=== PATIENT | male | born 1950 | race Caucasian/White ===

== ENCOUNTER → 2016-06-23 | Outpatient (CLI) | payer BC | END | disposition home or self-care (01) | LOC: LABWHC1 10:14 | PROVIDERS: ATTEND Internal Medicine | DX: Z48.23 Encounter for aftercare following liver transplant (principal) | CPT/HCPCS: 36415; 87497 ==

== ENCOUNTER 2016-11-21 16:11 | Inpatient (IN) | payer BC ==
[2016-11-21 17:51] LABS: Glucose,Whole Blood 209 mg/dL (75-99)
[2016-11-21 18:59] LABS: Anisocytosis Slight; Basophils % (A) 0 %; CH 23.8; CHCM 31.5; Eosinophils % (A) 1 %; HCT 35.5 % (39.0-53.0); Hypochromasia Moderate; Luc # (Auto) 0.04; Luc % (Auto) 2; Lymphocytes # (A) 0.5 k/uL (1.0-4.8); Lymphocytes % (A) 16 %; MCH 23.5 pg (25.0-35.0); MCV 75.9 fL (80.0-100.0); Mean Platelet Volume 7.6; Microcytosis Slight; Monocytes # (A) 0.2 k/uL (0-1.0); Monocytes % (A) 8 %; Neutrophils # (A) 2.2 k/uL (1.3-7.7); Neutrophils % (A) 73 %; Poikilocytosis Slight; RBC 4.68 m/uL (4.30-5.90); RDW 16.6 % (11.5-15.5); WBC (Perox) 3.03
[2016-11-21] MEDS: SODIUM CHLORIDE 0.9% 1,000 ML IV SCH (19:07)
[2016-11-21] MEDS: HYDROcodone/APAP 10-325MG 1 EACH TAB PO PRN (19:08)
[2016-11-21 19:11] LABS: ALT 12 U/L (21-72); AST 17 U/L (17-59); Alkaline Phosphatase 91 U/L (38-126); Anion Gap 11 mmol/L; Blood Urea Nitrogen 24 mg/dL (9-20); Carbon Dioxide 25 mmol/L (22-30); Chloride 103 mmol/L (98-107); Glucose 200 mg/dL (74-99); Non-African American GFR(MDRD) 51 (>60 ml/min/1.73 sqM); Potassium 4.1 mmol/L (3.5-5.1); Sodium 139 mmol/L (137-145); Total Bilirubin 0.5 mg/dL (0.2-1.3); Total Protein 6.5 g/dL (6.3-8.2); Uric Acid 3.3 mg/dL (3.5-8.5)
[2016-11-21 19:56] LABS: Manual Review Performed
[2016-11-21 19:57] LABS: Ovalocytes Present
[2016-11-21 20:48] LABS: Glucose,Whole Blood 164 mg/dL (75-99)
[2016-11-21] MEDS: FERROUS SULFATE 325 MG TAB PO SCH (21:01)
[2016-11-21] MEDS: traZODone HCL 50 MG TAB PO SCH (21:01)
[2016-11-21] MEDS: URSODIOL 300 MG CAP PO SCH (21:01)
[2016-11-21] MEDS: TACROLIMUS 1 MG CAP PO SCH (21:01)
[2016-11-21] MEDS: MAGNESIUM OXIDE 400 MG TAB PO SCH (21:01)
[2016-11-21] MEDS: ZORTRESS 0.75 MG PO SCH (21:02)
[2016-11-21] MEDS: INSULIN LISPRO (humaLOG) 300 UNIT/3 ML VIAL SQ SCH (21:03)
[2016-11-21 21:18] LABS: Hemoglobin A1C 8.7 % (4.2-6.1)
[2016-11-22] MEDS: HYDROcodone/APAP 10-325MG 1 EACH TAB PO PRN ×4 (02:32→22:28)
[2016-11-22 07:05] LABS: Glucose,Whole Blood 170 mg/dL (75-99)
[2016-11-22] MEDS: INSULIN LISPRO (humaLOG) 300 UNIT/3 ML VIAL SQ SCH ×4 (07:57→23:04)
[2016-11-22] MEDS: ASPIRIN 81 MG CHEW PO SCH (07:57)
[2016-11-22] MEDS: URSODIOL 300 MG CAP PO SCH ×2 (07:57→20:16)
[2016-11-22] MEDS: MAGNESIUM OXIDE 400 MG TAB PO SCH ×2 (07:58→20:16)
[2016-11-22] MEDS: TACROLIMUS 1 MG CAP PO SCH ×2 (07:58→20:16)
[2016-11-22] MEDS: LORATADINE 10 MG TAB PO SCH (07:58)
[2016-11-22] MEDS: ALLOPURINOL 100 MG TAB PO SCH (07:59)
[2016-11-22] MEDS: B COMPLEX-VIT C-VIT E-ZINC 1 EACH TAB PO SCH (07:59)
[2016-11-22] MEDS: FERROUS SULFATE 325 MG TAB PO SCH ×2 (07:59→20:15)
[2016-11-22] MEDS: CHOLECALCIFEROL 1,000 UNIT TAB PO SCH (07:59)
[2016-11-22] MEDS: TAMSULOSIN 0.4 MG CAP.ER.24H PO SCH (07:59)
[2016-11-22] MEDS: ZORTRESS 0.75 MG PO SCH ×2 (08:00→20:18)
[2016-11-22] MEDS: HYDROmorphone 1 MG/ML 1 ML SYRINGE IVP PRN ×5 (09:55→23:15)
[2016-11-22 12:03] LABS: Glucose,Whole Blood 190 mg/dL (75-99)
[2016-11-22] MEDS ORDERED: LIDOCAINE 1% INJ 10MG/ML (20 ML MDV) SQ ONE (12:09)
--- NOTE | 2016-11-22 12:14 | XR ---
Right knee HISTORY: Pain and swelling 3 views of the right knee Bone mineralization, joint spaces and alignment are maintained. There is soft tissue swelling present especially in the prepatellar location. No fracture or dislocation. No sizable joint effusion. Suspe ct vascular calcifications are present. IMPRESSION: Soft tissue swelling, correlate to exclude cellulitis.
--- NOTE | 2016-11-22 12:20 | P.CNOR ---
History of Present Illness - HPI Consult date: 11/22/16 Requesting physician: Carlos Wright Consult reason: joint pain History of present illness: Patient is a pleasant 66-year-old male seen at bedside this morning. Orthopedics is consulted for right knee pain and swelling. He states he developed right knee pain on 11/19/2016. He denies any acute injury or trauma to the knee. He has developed some swelling in the knee and the pain has been difficult to control with oral pain medications. He has pain with range of motion of the knee and ambulating. He was admitted yesterday 2016 due to the knee pain. He has no known history of gout or sepsis. He does however state he status post liver transplant April 2016. He denies fever or chills. He also denies numbness or tingling. He has no radicular complaints. Review of systems is negative for fever, chills, chest pain, shortness breath, nausea, vomiting, dizziness, headaches, slurred speech or other. Review of Systems All systems: negative Constitutional: Denies chills, Denies fever Eyes: denies blurred vision, denies pain Ears, nose, mouth and throat: Denies headache, Denies sore throat Cardiovascular: Denies chest pain, Denies shortness of breath Respiratory: Denies cough Gastrointestinal: Denies abdominal pain, Denies diarrhea, Denies nausea, Denies vomiting Musculoskeletal: Denies myalgias Integumentary: Denies pruritus, Denies rash Neurological: Denies numbness, Denies weakness Psychiatric: Denies anxiety, Denies depression Endocrine: Denies fatigue, Denies weight change Past Medical History Past Medical History: Coronary Artery Disease (CAD), Diabetes Mellitus, Hyperlipidemia, Hypertension, Liver Disease, Renal Disease Additional Past Medical History / Comment(s): pt had liver transplant 05/24/16 at [facility], (PREVIOUS end stage liver disease, liver cirrhosis with recurrent ascites-was getting paracentesis once a week, episodic hyperkalemia, coagulopathy), chronic renal failure, diabetes mellitus type II, colon polyps, sinus infections, seasonal allergies, previous fungal infection on feet, PATIENT HAS JUST FINISHED HYPERBARIC CHAMBER FOR ANTIBIOTIC INHALATION FOR LIVER TRANSPLANT AT [facility]. History of Any Multi-Drug Resistant Organisms: None Reported Past Surgical History: Appendectomy, Tonsillectomy Additional Past Surgical History / Comment(s): colonoscopy with precancerous polyps removed, skin precancerous lesions removed, multiple PARACENTESIS, liver transplant 05/24/16 at [facility]. Past Anesthesia/Blood Transfusion Reactions: No Reported Reaction Past Psychological History: No Psychological Hx Reported Additional Psychological History / Comment(s): Pt resides with his spouse. He is independent. Smoking Status: Former smoker Past Alcohol Use History: None Reported Additional Past Alcohol Use History / Comment(s): Pt states he started smoking at age 15 yrs and quit around 1975. Past Drug Use History: None Reported Additional Drug Use History / Comment(s): old history of etoh abuse - Past Family History Mother Family Medical History: No Reported History Additional Family Medical History / Comment(s): Mother was healthy and at the age of 98yrs. Father Family Medical History: Cancer Additional Family Medical History / Comment(s): Skin cancer. Father had another type of cancer-unknown what kind. He at the age of 73yrs. Medications and Allergies Home Medications Medication Instructions Recorded Confirmed Type Cetirizine HCl 10 mg PO DAILY 01/26/16 11/21/16 History Cholecalciferol [Vitamin D3] 2,000 unit PO DAILY 01/26/16 11/21/16 History Tamsulosin [Flomax] 0.4 mg PO DAILY 03/28/16 11/21/16 History Aspirin EC [Ecotrin Low Dose] 81 mg PO DAILY 11/21/16 11/21/16 History Ferrous Sulfate [Feosol] 325 mg PO BID 11/21/16 11/21/16 History Magnesium Oxide [Mag-Ox] 400 mg PO BID 11/21/16 11/21/16 History Tacrolimus [Prograf] 2 mg PO HS 11/21/16 11/21/16 History Tacrolimus [Prograf] 3 mg PO QAM 11/21/16 11/21/16 History Ursodiol [Actigall] 600 mg PO BID 11/21/16 11/21/16 History Vitamin B Complex 1 cap PO DAILY 11/21/16 11/21/16 History Zortress 0.75mg 1.5 mg PO HS 11/21/16 11/21/16 History Zortress 0.75mg 2.25 mg PO QAM 11/21/16 11/21/16 History traZODone HCL 50 mg PO HS 11/21/16 11/21/16 History oxyCODONE HCL [Roxicodone] 5 mg PO Q6H PRN 11/22/16 11/22/16 History Allergies Allergy/AdvReac Type Severity Reaction Status Date / Time No Known Allergies Allergy Verified 05/16/16 13:41 Physical Examination Inspection of the right lower extremity shows a moderate effusion at the right knee. There doesn't appear to be any significant erythema. There is no bony abnormality. There is mild tenderness to palpation along the joint. He has pain with passive range of motion with flexion to 90. The knee appears to be ligamentously stable. There is normal patellar tracking. It is not overly hot to touch. Calf is soft and nontender. Motor is intact throughout the right lower extremity as well as sensation. 2+ dorsalis pedis pulse and less than 2 second cap refill is present. Results - Labs Labs: Abnormal Lab Results - Last 24 Hours (Table) 11/21/16 11/21/16 11/21/16 Range/Units 17:49 18:37 18:37 WBC 3.0 L (3.8-10.6) k/uL Hgb 11.0 L (13.0-17.5) gm/dL Hct 35.5 L (39.0-53.0) % MCV 75.9 L (80.0-100.0) fL MCH 23.5 L (25.0-35.0) pg RDW 16.6 H (11.5-15.5) % Plt Count 96 L (150-450) k/uL Lymphocytes # 0.5 L (1.0-4.8) k/uL BUN (9-20) mg/dL Creatinine (0.66-1.25) mg/dL Glucose (74-99) mg/dL POC Glucose (mg/dL) 209 H (75-99) mg/dL Hemoglobin A1c 8.7 H (4.2-6.1) % Uric Acid (3.5-8.5) mg/dL ALT (21-72) U/L 11/21/16 11/21/16 11/22/16 Range/Units 18:37 20:47 07:03 WBC (3.8-10.6) k/uL Hgb (13.0-17.5) gm/dL Hct (39.0-53.0) % MCV (80.0-100.0) fL MCH (25.0-35.0) pg RDW (11.5-15.5) % Plt Count (150-450) k/uL Lymphocytes # (1.0-4.8) k/uL BUN 24 H (9-20) mg/dL Creatinine 1.39 H (0.66-1.25) mg/dL Glucose 200 H (74-99) mg/dL POC Glucose (mg/dL) 164 H 170 H (75-99) mg/dL Hemoglobin A1c (4.2-6.1) % Uric Acid 3.3 L (3.5-8.5) mg/dL ALT 12 L (21-72) U/L 11/22/16 Range/Units 11:57 WBC (3.8-10.6) k/uL Hgb (13.0-17.5) gm/dL Hct (39.0-53.0) % MCV (80.0-100.0) fL MCH (25.0-35.0) pg RDW (11.5-15.5) % Plt Count (150-450) k/uL Lymphocytes # (1.0-4.8) k/uL BUN (9-20) mg/dL Creatinine (0.66-1.25) mg/dL Glucose (74-99) mg/dL POC Glucose (mg/dL) 190 H (75-99) mg/dL Hemoglobin A1c (4.2-6.1) % Uric Acid (3.5-8.5) mg/dL ALT (21-72) U/L H & H 11/21/16 Range/Units 18:37 Hgb 11.0 L (13.0-17.5) gm/dL Hct 35.5 L (39.0-53.0) % Result Diagrams: 11/21/16 18:37 11/21/16 18:37 - Diagnostic results Knee x-ray: image reviewed (No fractures or dislocations. Mild arthritic changes.) Assessment and Plan (1) Knee pain, acute Narrative/Plan: Patient is afebrile, has a low white blood cell count, and the joint is not hot and red, thus I believe septic arthritis is low on differential. He does have an effusion and pain with range of motion would suspect acute gouty attack versus acute intra-articular injury or acute exacerbation of arthritis higher on the differential diagnosis. We will aspirate the joint fluid and send for cell count, fluid analysis for crystals, Gram stain, cultures and sensitivity. Continue with pain management and supportive measures. We'll make further recommendations as appropriate. Status: Acute Time with Patient: Less than 30
[2016-11-22] MEDS: CEPHALEXIN 500 MG CAP PO SCH ×2 (13:28→16:39)
[2016-11-22 17:12] LABS: Glucose,Whole Blood 141 mg/dL (75-99)
[2016-11-22] MEDS: SODIUM CHLORIDE 0.9% 1,000 ML IV SCH (18:10)
--- NOTE | 2016-11-22 18:48 | P.HPIM ---
History of Present Illness H&P Date: 11/22/16 Chief Complaint: R knee pain and swelling Patient is a 66-year-old male patient of Dr. Ballard who presented to the office with a chief complaint of right knee pain and swelling and erythema, he was admitted directly to [facility] medical floor, orthopedic surgery consultation was requested for knee aspiration, differential diagnosis include acute gout exacerbation versus infection and septic joint. Patient denies any previous history of gout he denies any previous history of any systemic infection with sepsis. Past Medical History Past Medical History: Coronary Artery Disease (CAD), Diabetes Mellitus, Hyperlipidemia, Hypertension, Liver Disease, Renal Disease Additional Past Medical History / Comment(s): pt had liver transplant 05/24/16 at [facility], (PREVIOUS end stage liver disease, liver cirrhosis with recurrent ascites-was getting paracentesis once a week, episodic hyperkalemia, coagulopathy), chronic renal failure, diabetes mellitus type II, colon polyps, sinus infections, seasonal allergies, previous fungal infection on feet, PATIENT HAS JUST FINISHED HYPERBARIC CHAMBER FOR ANTIBIOTIC INHALATION FOR LIVER TRANSPLANT AT [facility]. History of Any Multi-Drug Resistant Organisms: None Reported Past Surgical History: Appendectomy, Tonsillectomy Additional Past Surgical History / Comment(s): colonoscopy with precancerous polyps removed, skin precancerous lesions removed, multiple PARACENTESIS, liver transplant 05/24/16 at [facility]. Past Anesthesia/Blood Transfusion Reactions: No Reported Reaction Past Psychological History: No Psychological Hx Reported Additional Psychological History / Comment(s): Pt resides with his spouse. He is independent. Smoking Status: Former smoker Past Alcohol Use History: None Reported Additional Past Alcohol Use History / Comment(s): Pt states he started smoking at age 15 yrs and quit around 1975. Past Drug Use History: None Reported Additional Drug Use History / Comment(s): old history of etoh abuse - Past Family History Mother Family Medical History: No Reported History Additional Family Medical History / Comment(s): Mother was healthy and at the age of 98yrs. Father Family Medical History: Cancer Additional Family Medical History / Comment(s): Skin cancer. Father had another type of cancer-unknown what kind. He at the age of 73yrs. Medications and Allergies Home Medications Medication Instructions Recorded Confirmed Type Cetirizine HCl 10 mg PO DAILY 01/26/16 11/21/16 History Cholecalciferol [Vitamin D3] 2,000 unit PO DAILY 01/26/16 11/21/16 History Tamsulosin [Flomax] 0.4 mg PO DAILY 03/28/16 11/21/16 History Aspirin EC [Ecotrin Low Dose] 81 mg PO DAILY 11/21/16 11/21/16 History Ferrous Sulfate [Feosol] 325 mg PO BID 11/21/16 11/21/16 History Magnesium Oxide [Mag-Ox] 400 mg PO BID 11/21/16 11/21/16 History Tacrolimus [Prograf] 2 mg PO HS 11/21/16 11/21/16 History Tacrolimus [Prograf] 3 mg PO QAM 11/21/16 11/21/16 History Ursodiol [Actigall] 600 mg PO BID 11/21/16 11/21/16 History Vitamin B Complex 1 cap PO DAILY 11/21/16 11/21/16 History Zortress 0.75mg 1.5 mg PO HS 11/21/16 11/21/16 History Zortress 0.75mg 2.25 mg PO QAM 11/21/16 11/21/16 History traZODone HCL 50 mg PO HS 11/21/16 11/21/16 History oxyCODONE HCL [Roxicodone] 5 mg PO Q6H PRN 11/22/16 11/22/16 History Allergies Allergy/AdvReac Type Severity Reaction Status Date / Time No Known Allergies Allergy Verified 05/16/16 13:41 Physical Exam Vitals: Vital Signs Temp Pulse Resp BP Pulse Ox 11/22/16 16:00 72 16 11/22/16 15:00 97.1 F L 72 16 157/93 98 11/22/16 08:00 68 16 11/22/16 07:00 97.5 F L 68 16 141/84 97 11/21/16 22:58 97.2 F L 88 18 127/73 95 Intake and Output 11/22/16 11/22/16 11/22/16 06:59 14:59 22:59 Intake Total 200 Output Total 1350 600 Balance -1150 -600 Intake: Oral 200 Output: Urine 1350 600 Other: Voiding Method Urinal Urinal # Voids 400 400 # Bowel Movements 0 0 Weight 85.502 kg Patient Weight 11/23/16 06:59 Weight 85.502 kg In general patient is alert and oriented 3 in no apparent distress HEENT head normocephalic and atraumatic Neck is supple no JVD no goiter no lymphadenopathy Chest exam reveals a few scattered crackles no wheezing Cardiac exam reveals regular heart sounds S1 and S2 no gallops no murmurs Abdomen is soft nontender no organomegaly with normal bowel sounds Extremity exam reveals the right knee with erythema and swelling and tenderness otherwise no edema no cyanosis or clubbing Results CBC & Chem 7: 11/21/16 18:37 11/21/16 18:37 Labs: Abnormal Lab Results - Last 24 Hours (Table) 11/21/16 11/21/16 11/21/16 Range/Units 18:37 18:37 18:37 WBC 3.0 L (3.8-10.6) k/uL Hgb 11.0 L (13.0-17.5) gm/dL Hct 35.5 L (39.0-53.0) % MCV 75.9 L (80.0-100.0) fL MCH 23.5 L (25.0-35.0) pg RDW 16.6 H (11.5-15.5) % Plt Count 96 L (150-450) k/uL Lymphocytes # 0.5 L (1.0-4.8) k/uL BUN 24 H (9-20) mg/dL Creatinine 1.39 H (0.66-1.25) mg/dL Glucose 200 H (74-99) mg/dL POC Glucose (mg/dL) (75-99) mg/dL Hemoglobin A1c 8.7 H (4.2-6.1) % Uric Acid 3.3 L (3.5-8.5) mg/dL ALT 12 L (21-72) U/L 11/21/16 11/22/16 11/22/16 Range/Units 20:47 07:03 11:57 WBC (3.8-10.6) k/uL Hgb (13.0-17.5) gm/dL Hct (39.0-53.0) % MCV (80.0-100.0) fL MCH (25.0-35.0) pg RDW (11.5-15.5) % Plt Count (150-450) k/uL Lymphocytes # (1.0-4.8) k/uL BUN (9-20) mg/dL Creatinine (0.66-1.25) mg/dL Glucose (74-99) mg/dL POC Glucose (mg/dL) 164 H 170 H 190 H (75-99) mg/dL Hemoglobin A1c (4.2-6.1) % Uric Acid (3.5-8.5) mg/dL ALT (21-72) U/L 11/22/16 Range/Units 17:05 WBC (3.8-10.6) k/uL Hgb (13.0-17.5) gm/dL Hct (39.0-53.0) % MCV (80.0-100.0) fL MCH (25.0-35.0) pg RDW (11.5-15.5) % Plt Count (150-450) k/uL Lymphocytes # (1.0-4.8) k/uL BUN (9-20) mg/dL Creatinine (0.66-1.25) mg/dL Glucose (74-99) mg/dL POC Glucose (mg/dL) 141 H (75-99) mg/dL Hemoglobin A1c (4.2-6.1) % Uric Acid (3.5-8.5) mg/dL ALT (21-72) U/L Thrombosis Risk Factor Assmnt - Choose All That Apply Any of the Below Risk Factors Present?: Yes Other Risk Factors: Yes Each Risk Factor Represents 2 Points: Age 61-74 years Thrombosis Risk Factor Assessment Total Risk Factor Score: 2 Thrombosis Risk Factor Assessment Level: Low Risk Assessment and Plan Plan: #1 right knee inflammation with swelling erythema and tenderness Orthopedic surgery consultation was requested for the aspiration Differential diagnosis includes septic joint versus acute gout attack Awaiting fluid the results Will start patient on IV Rocephin 1 g every 24 hours Awaiting further results
[2016-11-22] MEDS: traZODone HCL 50 MG TAB PO SCH (20:16)
[2016-11-22 20:46] LABS: Glucose,Whole Blood 131 mg/dL (75-99)
[2016-11-23] MEDS: HYDROmorphone 1 MG/ML 1 ML SYRINGE IVP PRN ×4 (04:15→14:50)
[2016-11-23] MEDS: HYDROcodone/APAP 10-325MG 1 EACH TAB PO PRN ×2 (06:12→11:26)
[2016-11-23 07:40] LABS: Glucose,Whole Blood 144 mg/dL (75-99)
[2016-11-23 08:06] LABS: Anisocytosis Slight; Basophils % (A) 1 %; CH 23.5; CHCM 32.1; Eosinophils # (A) 0.1 k/uL (0-0.7); Eosinophils % (A) 3 %; HCT 35.5 % (39.0-53.0); HDW 3.41; HGB 11.5 gm/dL (13.0-17.5); Hypochromasia Slight; Luc # (Auto) 0.06; Luc % (Auto) 2; Lymphocytes # (A) 0.6 k/uL (1.0-4.8); Lymphocytes % (A) 22 %; MCH 23.8 pg (25.0-35.0); MCHC 32.4 g/dL (31.0-37.0); MCV 73.5 fL (80.0-100.0); Mean Platelet Volume 7.1; Microcytosis Moderate; Monocytes # (A) 0.3 k/uL (0-1.0); Monocytes % (A) 10 %; Neutrophils # (A) 1.7 k/uL (1.3-7.7); Neutrophils % (A) 62 %; Poikilocytosis Slight; RBC 4.83 m/uL (4.30-5.90); RDW 16.3 % (11.5-15.5); WBC 2.7 k/uL (3.8-10.6); WBC (Perox) 2.72
[2016-11-23 08:07] LABS: ALT 27 U/L (21-72); AST 19 U/L (17-59); Alkaline Phosphatase 95 U/L (38-126); Anion Gap 11 mmol/L; Blood Urea Nitrogen 25 mg/dL (9-20); Carbon Dioxide 26 mmol/L (22-30); Chloride 103 mmol/L (98-107); Glucose 142 mg/dL (74-99); Non-African American GFR(MDRD) 52 (>60 ml/min/1.73 sqM); Potassium 4.3 mmol/L (3.5-5.1); Sodium 140 mmol/L (137-145); Total Bilirubin 0.6 mg/dL (0.2-1.3); Total Protein 6.2 g/dL (6.3-8.2)
[2016-11-23] MEDS: ZORTRESS 0.75 MG PO SCH ×2 (08:10→21:30)
[2016-11-23] MEDS: MAGNESIUM OXIDE 400 MG TAB PO SCH ×2 (08:11→21:28)
[2016-11-23] MEDS: LORATADINE 10 MG TAB PO SCH (08:11)
[2016-11-23] MEDS: CHOLECALCIFEROL 1,000 UNIT TAB PO SCH (08:11)
[2016-11-23] MEDS: TACROLIMUS 1 MG CAP PO SCH ×2 (08:11→21:28)
[2016-11-23] MEDS: URSODIOL 300 MG CAP PO SCH ×2 (08:11→21:28)
[2016-11-23] MEDS: INSULIN LISPRO (humaLOG) 300 UNIT/3 ML VIAL SQ SCH ×4 (08:11→21:29)
[2016-11-23] MEDS: TAMSULOSIN 0.4 MG CAP.ER.24H PO SCH (08:11)
[2016-11-23] MEDS: B COMPLEX-VIT C-VIT E-ZINC 1 EACH TAB PO SCH (08:12)
[2016-11-23] MEDS: ALLOPURINOL 100 MG TAB PO SCH (08:12)
[2016-11-23] MEDS: FERROUS SULFATE 325 MG TAB PO SCH ×2 (08:12→21:29)
[2016-11-23] MEDS: ASPIRIN 81 MG CHEW PO SCH (08:12)
[2016-11-23 09:15] LABS: C Reactive Protein 52.1 mg/L (<10.0)
[2016-11-23 09:26] LABS: Erythrocyte Sedimentation Rate 28 mm/hr (0-15)
--- NOTE | 2016-11-23 10:41 | P.PN ---
Subjective Principal diagnosis: Prepatellar bursitis Patient is a 66-year-old male seen at bedside again this morning. We are following for his right knee pain. X-rays were negative which showed some soft tissue swelling. No significant joint aspirate was obtained. His findings have been more consistent with a prepatellar bursitis rather than a joint problem. Ice, compression, elevation and antibiotics have been started. He has no fever or chills. He has no new complaints today. He denies numbness, tingling, calf pain or other. Objective - Vital Signs Vital signs: Vital Signs Temp 97.1 F L 11/23/16 07:37 Pulse 73 11/23/16 08:00 Resp 18 11/23/16 08:00 BP 144/97 11/23/16 07:37 Pulse Ox 96 11/23/16 07:37 Intake & Output 11/22/16 11/23/16 11/23/16 18:59 06:59 18:59 Intake Total 200 Output Total 1950 1800 Balance -1750 -1800 Weight 85.502 kg Intake: Oral 200 Output: Urine 1950 1800 Other: Voiding Method Urinal Urinal # Voids 400 0 # Bowel Movements 0 0 - Exam Inspection of the right knee show some soft tissue swelling. There is no severe erythema. The joint is not overly hot. There is tenderness sup at the prepatellar bursa and skin superficial to patella. There is no joint line pain. The knee joint is ligamentously. The calf is soft and nontender. Neurovascular status is intact. - Constitutional General appearance: Present: no acute distress - Psychiatric Psychiatric: Present: A&O x's 3, appropriate affect, intact judgment & insight - Labs CBC & Chem 7: 11/23/16 07:07 11/23/16 07:07 Labs: Abnormal Lab Results - Last 24 Hours (Table) 11/22/16 11/22/16 11/22/16 Range/Units 11:57 17:05 20:45 WBC (3.8-10.6) k/uL Hgb (13.0-17.5) gm/dL Hct (39.0-53.0) % MCV (80.0-100.0) fL MCH (25.0-35.0) pg RDW (11.5-15.5) % Plt Count (150-450) k/uL Lymphocytes # (1.0-4.8) k/uL ESR (0-15) mm/hr BUN (9-20) mg/dL Creatinine (0.66-1.25) mg/dL Glucose (74-99) mg/dL POC Glucose (mg/dL) 190 H 141 H 131 H (75-99) mg/dL C-Reactive Protein (<10.0) mg/L Total Protein (6.3-8.2) g/dL 11/23/16 11/23/16 11/23/16 Range/Units 07:07 07:07 07:30 WBC 2.7 L (3.8-10.6) k/uL Hgb 11.5 L (13.0-17.5) gm/dL Hct 35.5 L (39.0-53.0) % MCV 73.5 L (80.0-100.0) fL MCH 23.8 L (25.0-35.0) pg RDW 16.3 H (11.5-15.5) % Plt Count 102 L (150-450) k/uL Lymphocytes # 0.6 L (1.0-4.8) k/uL ESR 28 H (0-15) mm/hr BUN 25 H (9-20) mg/dL Creatinine 1.37 H (0.66-1.25) mg/dL Glucose 142 H (74-99) mg/dL POC Glucose (mg/dL) 144 H (75-99) mg/dL C-Reactive Protein 52.1 H (<10.0) mg/L Total Protein 6.2 L (6.3-8.2) g/dL Assessment and Plan (1) Knee pain, acute Narrative/Plan: Patient is afebrile, has a low white blood cell count, and the joint is not hot and red, thus I believe septic arthritis is low on differential. He will continue with compression, elevation and icing. He is on IV ceftriaxone. We' ll request his primary care team's recommendation for an anti-inflammatory. We will continue to follow labs. Continue with pain management and supportive measures. We will continue to follow and make further recommendations as appropriate. Status: Acute Time with Patient: Less than 30
[2016-11-23] MEDS ORDERED: SODIUM CHLORIDE 0.9% 1,000 ML IV STA (10:54)
--- NOTE | 2016-11-23 11:06 | P.PN ---
Subjective Principal diagnosis: Patient is a 66-year-old male patient of Dr. Ballard who presented to the office with a chief complaint of right knee pain and swelling and erythema, he was admitted directly to [facility] medical floor, orthopedic surgery consultation was requested for knee aspiration, differential diagnosis include acute gout exacerbation versus infection and septic joint. Patient denies any previous history of gout he denies any previous history of any systemic infection with sepsis. Objective - Vital Signs Vital signs: Vital Signs Temp 97.1 F L 11/23/16 07:37 Pulse 73 11/23/16 08:00 Resp 18 11/23/16 08:00 BP 144/97 11/23/16 07:37 Pulse Ox 96 11/23/16 07:37 Intake & Output 11/22/16 11/23/16 11/23/16 18:59 06:59 18:59 Intake Total 200 Output Total 1950 1800 Balance -1750 -1800 Weight 85.502 kg Intake: Oral 200 Output: Urine 1950 1800 Other: Voiding Method Urinal Urinal # Voids 400 0 # Bowel Movements 0 0 - Exam In general patient is alert and oriented 3 in no apparent distress HEENT head normocephalic and atraumatic Neck is supple no JVD no goiter no lymphadenopathy Chest exam reveals a few scattered crackles no wheezing Cardiac exam reveals regular heart sounds S1 and S2 no gallops no murmurs Abdomen is soft nontender no organomegaly with normal bowel sounds Extremity exam reveals the right knee with erythema and swelling and tenderness , slightly less swelling and erythema than yesterday otherwise no edema no cyanosis or clubbing - Labs CBC & Chem 7: 11/23/16 07:07 11/23/16 07:07 Labs: Abnormal Lab Results - Last 24 Hours (Table) 11/22/16 11/22/16 11/22/16 Range/Units 11:57 17:05 20:45 WBC (3.8-10.6) k/uL Hgb (13.0-17.5) gm/dL Hct (39.0-53.0) % MCV (80.0-100.0) fL MCH (25.0-35.0) pg RDW (11.5-15.5) % Plt Count (150-450) k/uL Lymphocytes # (1.0-4.8) k/uL ESR (0-15) mm/hr BUN (9-20) mg/dL Creatinine (0.66-1.25) mg/dL Glucose (74-99) mg/dL POC Glucose (mg/dL) 190 H 141 H 131 H (75-99) mg/dL C-Reactive Protein (<10.0) mg/L Total Protein (6.3-8.2) g/dL 11/23/16 11/23/16 11/23/16 Range/Units 07:07 07:07 07:30 WBC 2.7 L (3.8-10.6) k/uL Hgb 11.5 L (13.0-17.5) gm/dL Hct 35.5 L (39.0-53.0) % MCV 73.5 L (80.0-100.0) fL MCH 23.8 L (25.0-35.0) pg RDW 16.3 H (11.5-15.5) % Plt Count 102 L (150-450) k/uL Lymphocytes # 0.6 L (1.0-4.8) k/uL ESR 28 H (0-15) mm/hr BUN 25 H (9-20) mg/dL Creatinine 1.37 H (0.66-1.25) mg/dL Glucose 142 H (74-99) mg/dL POC Glucose (mg/dL) 144 H (75-99) mg/dL C-Reactive Protein 52.1 H (<10.0) mg/L Total Protein 6.2 L (6.3-8.2) g/dL Assessment and Plan Plan: #1 right knee inflammation with swelling erythema and tenderness Orthopedic surgery consultation was requested for knee aspiration, however they were unable to obtain any fluid Differential diagnosis includes septic joint versus acute gout attack At this time patient was started on IV steroid Solu-Medrol 40 mg IV every 8 Will increase normal saline to 50 mL an hour due to elevated BUN and creatinine and monitor kidney function closely Continue patient on IV Rocephin 1 g every 24 hours Will monitor clinically
[2016-11-23 11:35] LABS: Glucose,Whole Blood 163 mg/dL (75-99)
[2016-11-23] MEDS: methylPREDNISolone SOD SUCCI 40 MG/ML 1 ML VIAL IV SCH ×2 (11:49→15:51)
[2016-11-23 17:05] LABS: Glucose,Whole Blood 266 mg/dL (75-99)
[2016-11-23] MEDS: SODIUM CHLORIDE 0.9% 1,000 ML IV SCH (17:51)
[2016-11-23 20:37] LABS: Glucose,Whole Blood 329 mg/dL (75-99)
[2016-11-23] MEDS: traZODone HCL 50 MG TAB PO SCH (21:28)
[2016-11-23 23:14] VITALS: RESP 16
[2016-11-24] MEDS: methylPREDNISolone SOD SUCCI 40 MG/ML 1 ML VIAL IV SCH ×2 (00:32→07:47)
[2016-11-24 07:07] LABS: Glucose,Whole Blood 340 mg/dL (75-99)
[2016-11-24] MEDS: INSULIN LISPRO (humaLOG) 300 UNIT/3 ML VIAL SQ SCH ×2 (07:47→13:10)
[2016-11-24] MEDS: MAGNESIUM OXIDE 400 MG TAB PO SCH ×2 (07:48→07:50)
[2016-11-24] MEDS: TACROLIMUS 1 MG CAP PO SCH (07:48)
[2016-11-24] MEDS: LORATADINE 10 MG TAB PO SCH (07:48)
[2016-11-24] MEDS: FERROUS SULFATE 325 MG TAB PO SCH (07:48)
[2016-11-24] MEDS: CHOLECALCIFEROL 1,000 UNIT TAB PO SCH (07:49)
[2016-11-24] MEDS: ASPIRIN 81 MG CHEW PO SCH (07:49)
[2016-11-24] MEDS: B COMPLEX-VIT C-VIT E-ZINC 1 EACH TAB PO SCH (07:49)
[2016-11-24] MEDS: URSODIOL 300 MG CAP PO SCH (07:50)
[2016-11-24] MEDS: ZORTRESS 0.75 MG PO SCH (07:50)
[2016-11-24] MEDS: TAMSULOSIN 0.4 MG CAP.ER.24H PO SCH (07:51)
[2016-11-24 08:08] VITALS: BP 142/87; PULSE 77; TEMP 97.5
[2016-11-24] MEDS ORDERED: ALLOPURINOL 100 MG TAB PO SCH (09:00)
--- NOTE | 2016-11-24 11:56 | P.PN ---
Subjective Principal diagnosis: Prepatellar bursitis/patellar tendonitis Patient is a 66-year-old male seen at bedside again this morning. We are following for his right knee pain. X-rays were negative which showed some soft tissue swelling. No significant joint aspirate was obtained. His findings have been more consistent with a prepatellar bursitis/patellar tendonitis rather than a joint problem. Ice, compression, elevation, corticosteroids and antibiotics have been utilized. He is much improved this morning. He has no fever or chills. He has no new complaints today. He denies numbness, tingling, calf pain or other. Objective - Vital Signs Vital signs: Vital Signs Temp 97.5 F L 11/24/16 07:00 Pulse 77 11/24/16 07:00 Resp 16 11/24/16 08:00 BP 142/87 11/24/16 07:00 Pulse Ox 92 L 11/24/16 07:00 Intake & Output 11/23/16 11/24/16 11/24/16 18:59 06:59 18:59 Output Total 1500 700 Balance -1500 -700 Weight 85.502 kg 85.502 kg Output: Urine 1500 700 Other: Voiding Method Urinal Urinal # Voids 0 2 2 # Bowel Movements 0 0 - Exam Inspection of the right knee show no significant swelling. There is no erythema. The joint is not overly hot. The tenderness at the superficial patella, bursa and patellar tendon are significantly improved. There is minimal pain with active and passive range of motion of the knee. There is no joint line pain. The knee joint is ligamentously stable. The calf is soft and nontender. Neurovascular status is intact. - Constitutional General appearance: Present: no acute distress - Psychiatric Psychiatric: Present: A&O x's 3, appropriate affect, intact judgment & insight - Labs CBC & Chem 7: 11/23/16 07:07 11/23/16 07:07 Labs: Abnormal Lab Results - Last 24 Hours (Table) 11/23/16 11/23/16 11/24/16 Range/Units 17:02 20:35 07:03 POC Glucose (mg/dL) 266 H 329 H 340 H (75-99) mg/dL Assessment and Plan (1) Knee pain, acute Narrative/Plan: Patient is significantly improved this morning. There is minimal tenderness at the patellar tendon and bursa. There is no joint effusion or erythema. He is afebrile. He may continue with anti-inflammatories per primary care team. Continue icing and compression when necessary. Also recommended modified activities with no excessive squatting, kneeling or stairs. He may be discharged from an orthopedic standpoint and we will sign off for now. He may follow up with us in office if he desires. Status: Acute Time with Patient: Less than 30
[2016-11-24 12:09] LABS: Glucose,Whole Blood 386 mg/dL (75-99)
[2016-11-24] MEDS ORDERED: INSULIN LISPRO (humaLOG) 300 UNIT/3 ML VIAL SQ ONE (12:15)
--- NOTE | 2016-11-24 13:58 | P.DS ---
Providers Date of admission: 11/21/16 16:27 Expected date of discharge: 11/24/16 Attending physician: Gaetano Ballard Consults: 11/21/16 18:18 Consult Physician Routine Consulting Provider: Carlos Wright Consult Reason/Comments: ASPIRATION OF RIGHT KNEE FLUID, SEPTIC ARTHRITIS VS GOUT Do you want consulting provider notified?: Yes Primary care physician: Stated None Hospital Course: Discharge diagnosis 1. Acute right knee pain with Prepatellar bursitis. Septic joint and gout ruled out. patient will be discharged with Medrol Dosepak 2. Diabetes mellitus type 2: diet controlled. Hyperglycemia secondary to IV steroids covered with sliding scale 3. Hyperlipidemia 4. Essential hypertension 5. Chronic renal failure stage III 6. End-stage liver disease with liver cirrhosis status post liver transplant at [facility] course Patient is a 66-year-old male patient of Dr. Ballard who presented to the office with a chief complaint of right knee pain and swelling and erythema, he was admitted directly to [facility] medical floor, orthopedic surgery consultation was requested for knee aspiration, differential diagnosis include acute gout exacerbation versus infection and septic joint. Patient denies any previous history of gout he denies any previous history of any systemic infection with sepsis. Patient was started on IV steroids and antibiotics. There was no fluid to aspirate. Uric acid level was 3.3 which is low. Patient was evaluated by orthopedics and they felt that likely this was a prepatellar bursitis. And therefore we will treat with a Medrol Dosepak. Patient does have oxycodone at home and he'll continue that. He did have elevated blood sugars due to the IV steroids. Patient's symptoms have improved. He is medically stable for discharge. He will follow-up with orthopedics outpatient Patient Condition at Discharge: Stable Plan - Discharge Summary New Discharge Prescriptions: New methylPREDNISolone Dose Pack [Medrol Dose Pack] 4 mg PO DIRECTED #21 package Continue Cholecalciferol [Vitamin D3] 2,000 unit PO DAILY Cetirizine HCl 10 mg PO DAILY Tamsulosin [Flomax] 0.4 mg PO DAILY Ursodiol [Actigall] 600 mg PO BID Tacrolimus [Prograf] 3 mg PO QAM Tacrolimus [Prograf] 2 mg PO HS Magnesium Oxide [Mag-Ox] 400 mg PO BID traZODone HCL 50 mg PO HS Zortress 0.75mg 2.25 mg PO QAM Ferrous Sulfate [Iron (65 MG Elemental)] 325 mg PO BID Zortress 0.75mg 1.5 mg PO HS Vitamin B Complex 1 cap PO DAILY Aspirin EC [Ecotrin Low Dose] 81 mg PO DAILY oxyCODONE HCL [Roxicodone] 5 mg PO Q6H PRN PRN Reason: Pain Discharge Medication List Cetirizine HCl 10 mg PO DAILY 01/26/16 [History] Cholecalciferol [Vitamin D3] 2,000 unit PO DAILY 01/26/16 [History] Tamsulosin [Flomax] 0.4 mg PO DAILY 03/28/16 [History] Aspirin EC [Ecotrin Low Dose] 81 mg PO DAILY 11/21/16 [History] Ferrous Sulfate [Iron (65 MG Elemental)] 325 mg PO BID 11/21/16 [History] Magnesium Oxide [Mag-Ox] 400 mg PO BID 11/21/16 [History] Tacrolimus [Prograf] 2 mg PO HS 11/21/16 [History] Tacrolimus [Prograf] 3 mg PO QAM 11/21/16 [History] Ursodiol [Actigall] 600 mg PO BID 11/21/16 [History] Vitamin B Complex 1 cap PO DAILY 11/21/16 [History] Zortress 0.75mg 1.5 mg PO HS 11/21/16 [History] Zortress 0.75mg 2.25 mg PO QAM 11/21/16 [History] traZODone HCL 50 mg PO HS 11/21/16 [History] oxyCODONE HCL [Roxicodone] 5 mg PO Q6H PRN 11/22/16 [History] methylPREDNISolone Dose Pack [Medrol Dose Pack] 4 mg PO DIRECTED #21 package 11/24/16 [Rx] Follow up Appointment(s)/Referral(s): Gaetano Ballard MD [STAFF PHYSICIAN] - 1 Week Carlos Wright MD [STAFF PHYSICIAN] - 1 Week Patient Instructions/Handouts: Septic Arthritis (DC) Activity/Diet/Wound Care/Special Instructions: Cardiac, diabetic diet. activity: as tolerated Discharge Disposition: HOME SELF-CARE
--- NOTE | 2016-11-26 11:07 | CONS ---
DATE OF CONSULTATION: 11/23/2016 Amandeep is a very pleasant 66-year-old male. We are consulted by Medicine Service for right knee pain and swelling. Of note, he has had a history of liver transplant done in April of 2016 at [facility]. He has recovered quite nicely from that. He developed knee pain approximately 2 to 3 days ago. On history to me, he spent the previous day working in the yard, cutting the grass. He was quite active that day. He woke up with knee pain the next day. Most of his pain is in the front part of his knee. He presented to the hospital on 11/21/2016 due to the knee pain. He has no known history of gout or sepsis. He denied any fever or chills. He was admitted for his knee pain. MEDICAL HISTORY: 1. Coronary artery disease. 2. Diabetes mellitus. 3. Hyperlipidemia. 4. Hypertension. 5. Liver disease. The patient had a liver transplant on 05/24/2016 at [facility]. 6. Renal disease. 7. Chronic renal failure. 8. Sinus infections. 9. Seasonal allergies. SURGICAL HISTORY: 1. Appendectomy. 2. Tonsillectomy. 3. Liver transplant. SMOKING STATUS: Former smoker. PHYSICAL EXAM: Amandeep is afebrile. Vital signs are stable. White count done today was 2.7, hemoglobin 11.5, platelets 102. EXAMINATION OF THE RIGHT KNEE: There is no erythema or fluctuance. He has no effusion in the knee. He is very tender in the pre-patellar area. Specifically, he is very tender over the patellar tendon. There is very minimal to no swelling in this area, either. There is no erythema or fluctuance. He has been improving with rest. He has full extension of the knee. Flexion is to 120 degrees, but he has pain with hyperflexion in the anterior aspects of the knee. The knee is otherwise ligamentously stable. Distally he has intact flexion and extension of the foot and ankle, intact inversion and eversion of the ankle. He has intact flexion and extension of all of his toes. He has grossly intact sensation in the lateral medial plantar and first dorsal web space sensation. He has a palpable posterior tibial pulse. X-rays of the knee are negative for fracture. IMPRESSION: Right knee mild pre-patellar bursitis versus patellar tendinitis. RECOMMENDATIONS: Amandeep is improving with rest. I do not see any evidence of an intra-articular infection. There is no fluid collection which could be aspirated from the pre-patellar area, either. Per his history, he developed this knee pain after doing quite a bit of lawn work the day before. He has likely developed an inflammatory condition in the anterior aspect of the knee. Rest and ice will be warranted at this point in time. Certainly if signs of infection were to arise, attempt at an aspiration would be reasonable. At this point in time I do not see any need to continue trying to obtain an aspirate from the knee. Continue to monitor Amandeep while he is in the hospital. I will see him in the office within a week after discharge to follow up on his symptoms. All of his questions were answered to his satisfaction. The plan of care was reviewed with him to his satisfaction. NIXON
== END 2016-11-24 14:56 | disposition home or self-care (01) | DRG 558 ==
LOC: OBSVTOIN 16:27 → 4MS4W 16:27
PROVIDERS: ADMIT Internal Medicine; ATTEND Internal Medicine
PROC: 0S9C3ZZ Drainage of Right Knee Joint, Percutaneous Approach (ICD-10-PCS; principal; 2016-11-22)
DX: M70.41 Prepatellar bursitis, right knee (principal); E11.22 Type 2 diabetes mellitus with diabetic chronic kidney disease; Z94.4 Liver transplant status; N18.3 Chronic kidney disease, stage 3 (moderate); E11.65 Type 2 diabetes mellitus with hyperglycemia; E78.5 Hyperlipidemia, unspecified; T38.0X5A Adverse effect of glucocorticoids and synthetic analogues, initial encounter; M17.11 Unilateral primary osteoarthritis, right knee; I25.10 Atherosclerotic heart disease of native coronary artery without angina pectoris; I12.9 Hypertensive chronic kidney disease with stage 1 through stage 4 chronic kidney disease, or unspecified chronic kidney disease; J30.2 Other seasonal allergic rhinitis; Z87.891 Personal history of nicotine dependence; Z80.8 Family history of malignant neoplasm of other organs or systems; Z86.010 Personal history of colon polyps; Z90.49 Acquired absence of other specified parts of digestive tract; Z80.9 Family history of malignant neoplasm, unspecified; Z86.19 Personal history of other infectious and parasitic diseases; Z79.82 Long term (current) use of aspirin; Z79.891 Long term (current) use of opiate analgesic; Z79.899 Other long term (current) drug therapy; Z92.25 Personal history of immunosuppression therapy
CPT/HCPCS: 80053; 83036; 84550; 85025; 85652; 86140

== ENCOUNTER → 2017-01-26 | Outpatient (CLI) | payer BC | END | disposition home or self-care (01) | LOC: LABWHC1 06:34 | PROVIDERS: ATTEND Internal Medicine | DX: Z87.39 Personal history of other diseases of the musculoskeletal system and connective tissue (principal) | CPT/HCPCS: 36415; 84550 ==

== ENCOUNTER → 2017-02-08 | Outpatient (CLI) | payer BC | END | disposition home or self-care (01) | LOC: LABWHC1 06:56 | PROVIDERS: ATTEND Internal Medicine | DX: M10.9 Gout, unspecified (principal) | CPT/HCPCS: 36415; 84550 ==

== ENCOUNTER → 2017-06-14 | Outpatient (CLI) | payer BC | END | disposition home or self-care (01) | LOC: LABWHC1 06:39 | PROVIDERS: ATTEND Internal Medicine | DX: M1A.00X0 Idiopathic chronic gout, unspecified site, without tophus (tophi) (principal) | CPT/HCPCS: 36415; 84550 ==

== ENCOUNTER 2017-07-31 07:32 | Day surgery (SDC) | payer BC ==
[2017-07-28 09:08] VITALS: BMI 31.5
[~2017-07-31 07:32] MED LIST: DEXAMETHASONE SOD PHOSPHATE 10 MG/ML 1 ML VIAL IV ONE; HEPARIN SODIUM,PORCINE 5,000 UNIT/ML 1 ML VIAL SQ ONE; LACTATED RINGERS 1,000 ML IV SCH; LIDOCAINE 1% 20 ML VIAL (10MG/ML) FOR IV START INTRADERMA PRN; MORPHINE SULFATE 2 MG/ML SYRINGE IV PRN; ONDANSETRON 4 MG/2 ML VIAL IVP ONE; Pre Op ABX Message 1 EACH MISC MISCELLANE ONE; SCOPOLAMINE 1.5MG/72HR PATCH TRANSDERM ONE
[2017-07-31 08:15] VITALS: TEMP 98.1
--- NOTE | 2017-07-31 08:33 | P.GSHP ---
History of Present Illness H&P Date: 07/31/17 Chief Complaint: Melanoma left chest wall This is a 67-year-old male who's undergone recent biopsy of a chest wall skin lesion. Patient's found to have a melanoma. Patient presents today for wide local excision of melanoma. Past Medical History Past Medical History: Cancer, Diabetes Mellitus, Hyperlipidemia, Hypertension, Liver Disease, Renal Disease Additional Past Medical History / Comment(s): Liver Transplant 05/24/16 at [facility], (PREVIOUS end stage liver disease, liver cirrhosis with recurrent ascites& paracentesis weekly, episodic hyperkalemia, coagulopathy), chronic renal failure, diabetes mellitus type II, colon polyps, sinus infections, seasonal allergies, Hx of HYPERBARIC CHAMBER FOR ANTIBIOTIC INHALATION FOR LIVER TRANSPLANT AT [facility]. , melanoma left chest- pt states small scab from biopsy. History of Any Multi-Drug Resistant Organisms: None Reported Past Surgical History: Appendectomy, Tonsillectomy Additional Past Surgical History / Comment(s): colonoscopy with precancerous polyps removed, skin precancerous lesions removed, multiple PARACENTESIS, liver transplant 05/24/16 at [facility]. Past Anesthesia/Blood Transfusion Reactions: No Reported Reaction Past Psychological History: No Psychological Hx Reported Additional Psychological History / Comment(s): . Smoking Status: Former smoker Past Alcohol Use History: None Reported Additional Past Alcohol Use History / Comment(s): Pt states he started smoking at age 15 yrs and quit around 1975. Past hx of alcohol use. Past Drug Use History: None Reported - Past Family History Mother Family Medical History: No Reported History Additional Family Medical History / Comment(s): Mother was healthy and at the age of 98yrs. Father Family Medical History: Cancer, Deep Vein Thrombosis (DVT) Additional Family Medical History / Comment(s): Skin cancer. Father had another type of cancer-unknown what kind. He at the age of 73yrs. Medications and Allergies Home Medications Medication Instructions Recorded Confirmed Type Cholecalciferol [Vitamin D3] 2,000 unit PO BID 01/26/16 07/31/17 History Tamsulosin [Flomax] 0.4 mg PO DAILY 03/28/16 07/31/17 History Aspirin EC [Ecotrin Low Dose] 81 mg PO DAILY 11/21/16 07/31/17 History Magnesium Oxide [Mag-Ox] 400 mg PO DAILY 11/21/16 07/31/17 History Tacrolimus [Prograf] 1 mg PO HS 11/21/16 07/31/17 History Tacrolimus [Prograf] 2 mg PO QAM 11/21/16 07/31/17 History Ursodiol [Actigall] 300 mg PO BID 11/21/16 07/31/17 History Vitamin B Complex 1 cap PO DAILY 11/21/16 07/31/17 History traZODone HCL 50 mg PO HS 11/21/16 07/31/17 History Allopurinol [Zyloprim] 100 mg PO DAILY 07/28/17 07/31/17 History Everolimus 3 tab PO BID 07/28/17 07/31/17 History Ferrous Sulfate (Unknown Dose) 1 tab PO BID 07/28/17 07/31/17 History Insulin Glargine,Hum.rec.anlog 24 unit SQ HS 07/28/17 07/31/17 History [Lantus Solostar] Janumet (Unknown Dose) 1 tab PO DAILY 07/28/17 07/31/17 History glipiZIDE [Glucotrol] 5 mg PO AC-BID 07/28/17 07/31/17 History Allergies Allergy/AdvReac Type Severity Reaction Status Date / Time No Known Allergies Allergy Verified 07/31/17 08:15 Surgical - Exam Vital Signs Temp Pulse Resp BP Pulse Ox 98.1 F 73 16 160/88 98 07/31/17 08:11 07/31/17 08:11 07/31/17 08:11 07/31/17 08:11 07/31/17 08:11 - General well developed, no distress - Eyes PERRL - ENT normal pinna - Neck no masses - Respiratory normal expansion - Cardiovascular Rhythm: regular - Abdomen Abdomen: soft Hernia: none - Integumentary 5 mm biopsy site well healed on left chest wall. Assessment and Plan Assessment: Left chest wall melanoma. We'll perform wide local excision of biopsy site.
[2017-07-31 08:52] LABS: Glucose,Whole Blood 110 mg/dL (75-99)
[2017-07-31] MEDS ORDERED: MIDAZOLAM 2 MG/2 ML VIAL ONE (08:57)
[2017-07-31] MEDS ORDERED: PROPOFOL 10 MG/ML 20 ML VIAL IV ONE (08:57)
[2017-07-31] MEDS ORDERED: fentaNYL (PF) 50 MCG/ML 2 ML AMP ONE (08:57)
[2017-07-31] MEDS ORDERED: SODIUM CHLORIDE 0.9% 100 ML with ceFAZolin 2,000 MG IV ONE ×2 (09:02)
[2017-07-31] MEDS ORDERED: BUPIVACAINE (PF) 0.25% 30 ML VIAL SQ ONE ×2 (09:09)
--- NOTE | 2017-07-31 09:31 | P.OP ---
Date of Procedure: 07/31/17 Preoperative Diagnosis: Melanoma left chest wall Postoperative Diagnosis: Melanoma left chest wall Procedure(s) Performed: Wide local excision of melanoma left chest wall Anesthesia: MAC Surgeon: Iban Green Estimated Blood Loss (ml): 5 Pathology: other (Left chest wall wide local excision) Condition: stable Disposition: PACU Description of Procedure: The patient's placed the operative table in the supine position. He received IV sedation. The melanoma had been marked in the preoperative hold area. Using a 15 blade a elliptical skin incision was made around the melanoma and then using a large cautery and sharp dissection the wide local excision was performed. The specimen was marked with a long suture superiorly and a short suture medially. The Bovie was used for hemostasis. The wound was closed in 2 layers using 2-0 Vicryl and 3-0 Monocryl. Dermabond was applied. Patient tolerated the procedure well and was sent to recovery room in stable condition.
[2017-07-31 10:08] VITALS: RESP 18
[2017-07-31 10:23] VITALS: BP 166/91; PULSE 62
--- NOTE | 2017-08-03 10:07 | CDI ---
Outpatient Documentation Clarification Form Date: 08/03/17 CDS/Room Service Server Name: Chloé Aguilera Phone: If any questions, call Herminia Rodarte Government Property Inspector at [phone] Patient Name: Amandeep Tolbert Admit Date: 07/31/17 Discharge Date: 07/31/17 ATTENTION: The [facility] Coding Staff appreciate your assistance in clarifying documentation. Please respond to the clarification below the line at the bottom and electronically sign. The [facility] Coding staff will review the response and follow-up if needed. Please note: Queries are made part of the Legal Health Record. If you have any questions, please contact the Government Property Inspector. Dear Dr. Green 1. What is the size of the lesion excision? 2. What is the size of the skin repair/closure? Thank you for your kind consideration. The lesion measured 4.2 x 6 cm. The length of the skin closure was approximately 6 cm. MTDD
== END 2017-07-31 10:35 | disposition home or self-care (01) ==
LOC: OR 07:32
PROVIDERS: ATTEND Surgery
DX: Z08 Encounter for follow-up examination after completed treatment for malignant neoplasm (principal); Z85.820 Personal history of malignant melanoma of skin; E78.5 Hyperlipidemia, unspecified; Z94.4 Liver transplant status; K74.60 Unspecified cirrhosis of liver; Z87.19 Personal history of other diseases of the digestive system; I12.9 Hypertensive chronic kidney disease with stage 1 through stage 4 chronic kidney disease, or unspecified chronic kidney disease; E11.22 Type 2 diabetes mellitus with diabetic chronic kidney disease; N18.9 Chronic kidney disease, unspecified; J30.2 Other seasonal allergic rhinitis; Z79.84 Long term (current) use of oral hypoglycemic drugs; Z79.82 Long term (current) use of aspirin; Z79.4 Long term (current) use of insulin; Z79.899 Other long term (current) drug therapy; Z86.010 Personal history of colon polyps; Z87.891 Personal history of nicotine dependence
CPT/HCPCS: 11406; 12032; 88305; 88342; J2250; J1644; J1100; J2405; J0690; J3010; J2704

== ENCOUNTER → 2018-05-03 | Outpatient (CLI) | payer OTHER ==
[2018-05-03 07:46] LABS: Basophils % (A) 1 %; Eosinophils # (A) 0.2 k/uL (0-0.7); Eosinophils % (A) 3 %; HCT 50.3 % (39.0-53.0); HGB 16.4 gm/dL (13.0-17.5); Lymphocytes # (A) 1.6 k/uL (1.0-4.8); Lymphocytes % (A) 31 %; MCH 26.6 pg (25.0-35.0); MCHC 32.6 g/dL (31.0-37.0); MCV 81.5 fL (80.0-100.0); Mean Platelet Volume 7.1; Monocytes # (A) 0.3 k/uL (0-1.0); Monocytes % (A) 6 %; Neutrophils % (A) 58 %; Platelet Count 148 k/uL (150-450); RBC 6.17 m/uL (4.30-5.90); RDW 13.5 % (11.5-15.5); WBC 5.2 k/uL (3.8-10.6)
[2018-05-03 11:33] LABS: ALT 28 U/L (10-49); AST 20 U/L (14-35); Albumin/Globulin Ratio 2.26 (1.20-2.10); Alkaline Phosphatase 98 U/L (41-126); Bilirubin, Conjugated <0.20 mg/dL (0.20-0.40); Carbon Dioxide 21.4 mmol/L (21.6-31.8); Chloride 108 mmol/L (96-109); Cholesterol 173 mg/dL (0-200); Globulin 1.9 g/dL (2.1-3.7); Glucose 236 mg/dL (70-110); Magnesium 1.8 mg/dL (1.5-2.4); Potassium 4.9 mmol/L (3.5-5.5); Sodium 139 mmol/L (135-145); Total Bilirubin 0.2 mg/dL (0.3-1.2); Total Protein 6.2 g/dL (6.2-8.2)
== END | disposition home or self-care (01) ==
LOC: LABWHC1 06:33
PROVIDERS: ATTEND Internal Medicine Hepatology
DX: Z51.81 Encounter for therapeutic drug level monitoring (principal); E78.5 Hyperlipidemia, unspecified; D89.9 Disorder involving the immune mechanism, unspecified; Z94.4 Liver transplant status
CPT/HCPCS: 36415; 80048; 80061; 80076; 80169; 80197; 83735; 85025

== ENCOUNTER → 2018-11-08 | Outpatient (CLI) | payer BC, MEDICARE ==
[2018-11-08 13:08] LABS: Hemoglobin A1C 10.6 % (4.0-6.0)
== END ==
LOC: LABWHC1 06:37
PROVIDERS: ATTEND Family Medicine
DX: E11.9 Type 2 diabetes mellitus without complications (principal); N40.0 Benign prostatic hyperplasia without lower urinary tract symptoms
CPT/HCPCS: 36415; 83036; 84153

== ENCOUNTER → 2019-08-14 | Outpatient (CLI) | payer BC, MEDICARE ==
[2019-08-14 08:29] LABS: Basophils % (A) 0 %; Eosinophils # (A) 0.1 k/uL (0-0.7); Eosinophils % (A) 3 %; HCT 45.7 % (39.0-53.0); HGB 14.3 gm/dL (13.0-17.5); Lymphocytes # (A) 1.3 k/uL (1.0-4.8); Lymphocytes % (A) 30 %; MCH 24.4 pg (25.0-35.0); MCHC 31.3 g/dL (31.0-37.0); MCV 77.9 fL (80.0-100.0); Mean Platelet Volume 7.2; Monocytes # (A) 0.3 k/uL (0-1.0); Monocytes % (A) 7 %; Neutrophils # (A) 2.5 k/uL (1.3-7.7); Neutrophils % (A) 59 %; Platelet Count 160 k/uL (150-450); RBC 5.86 m/uL (4.30-5.90); RDW 14.4 % (11.5-15.5); WBC 4.2 k/uL (3.8-10.6)
[2019-08-14 16:21] LABS: African American GFR (CKD) 41.4 (60.0-200.0); Albumin 4.2 g/dL (3.80-4.90); Albumin/Globulin Ratio 2.21 (1.60-3.17); Anion Gap 9.3 mmol/L (4.00-12.00); BUN/Creat Ratio 15.26 Ratio (12.00-20.00); Bilirubin, Conjugated 0.2 mg/dL (0.20-0.40); Bilirubin,Unconjugated 0.2 mg/dL; Calcium 8.8 mg/dL (8.7-10.3); Carbon Dioxide 22.7 mmol/L (21.6-31.8); Chol/HDL Ratio 4.4; Globulin 1.9 g/dL (1.6-3.3); LDL Cholesterol,Calculated 73.4 mg/dL (0.0-131.0); Magnesium 1.9 mg/dL (1.5-2.4); Non-African American GFR(CKD) 35.7 (60.0-200.0); Potassium 5.1 mmol/L (3.5-5.5); Total Bilirubin 0.4 mg/dL (0.3-1.2); Total Protein 6.1 g/dL (6.2-8.2); VLDL Calculation 28.6 mg/dL (5.00-40.00)
[2019-08-14 17:15] LABS: Creatinine,Urine Random 110.9 mg/dL
[2019-08-14 17:20] LABS: Total Protein,Urine Random 62.9 mg/dL (0.0-13.5)
== END | disposition home or self-care (01) ==
LOC: LABWHC1 06:36
PROVIDERS: ATTEND Internal Medicine Nephrology
DX: D89.9 Disorder involving the immune mechanism, unspecified (principal); Z51.81 Encounter for therapeutic drug level monitoring; Z48.298 Encounter for aftercare following other organ transplant; Z94.4 Liver transplant status; E11.8 Type 2 diabetes mellitus with unspecified complications; E11.22 Type 2 diabetes mellitus with diabetic chronic kidney disease; N18.3 Chronic kidney disease, stage 3 (moderate); Z79.4 Long term (current) use of insulin
CPT/HCPCS: 36415; 80048; 80061; 80076; 80169; 80197; 82570; 83735; 84156; 85025

== ENCOUNTER → 2019-12-11 | Outpatient (CLI) | payer MEDICARE, BC ==
[2019-12-11 12:36] LABS: Hemoglobin A1C 6.6 % (4.0-6.0)
[2019-12-11 12:41] LABS: African American GFR (CKD) 38.9 (60.0-200.0); Anion Gap 8.1 mmol/L (4.00-12.00); Calcium 8.4 mg/dL (8.7-10.3); Carbon Dioxide 20.9 mmol/L (21.6-31.8); Non-African American GFR(CKD) 33.5 (60.0-200.0)
== END | disposition home or self-care (01) ==
LOC: LABWHC1 07:02
PROVIDERS: ATTEND Internal Medicine
DX: E11.65 Type 2 diabetes mellitus with hyperglycemia (principal)
CPT/HCPCS: 36415; 80048; 83036

== ENCOUNTER → 2020-01-15 | Outpatient (CLI) | payer MEDICARE, BC ==
--- NOTE | 2020-01-15 08:48 | US ---
EXAMINATION TYPE: US kidneys/renal and bladder DATE OF EXAM: 01/15/2020 COMPARISON: NONE CLINICAL HISTORY: N18.4 Chronic kidney disease. CKD EXAM MEASUREMENTS: Right Kidney: 11.1 x 5.2 x 4.3 cm Left Kidney: 11.7 x 4.4 x 3.5 cm Right Kidney: No hydronephrosis or masses seen Left Kidney: No hydronephrosis or masses seen Bladder: wnl Bilateral Jets seen: Yes There is no evidence for hydronephrosis at this point in time. No nephrolithiasis is seen. No malcolm s are identified. The urinary bladder is anechoic. Bilateral ureteral jets are seen. IMPRESSION: No distinct abnormality appreciated.
[2020-01-15 10:01] LABS: HCT 45.8 % (39.0-53.0); HGB 13.7 gm/dL (13.0-17.5); Hypochromasia Moderate; MCH 24.4 pg (25.0-35.0); MCV 81.3 fL (80.0-100.0); Mean Platelet Volume 7.7; Platelet Count 166 k/uL (150-450); RBC 5.64 m/uL (4.30-5.90); RDW 14.7 % (11.5-15.5)
[2020-01-15 10:11] LABS: Albumin 3.6 g/dL (3.5-5.0); Calcium 8.3 mg/dL (8.4-10.2); Phosphorus 3.7 mg/dL (2.5-4.5); Total Bilirubin 0.4 mg/dL (0.2-1.3); Total Protein 5.9 g/dL (6.3-8.2)
[2020-01-15 10:12] LABS: Appearance,Urine Clear (Clear); Bilirubin,Urine Negative (Negative); Blood,Urine Negative (Negative); Color,Urine Light Yellow; Glucose,Urine (UA) Negative (Negative); Ketones,Urine Negative (Negative); Leukocyte Esterase,Urine Negative (Negative); Nitrite,Urine Negative (Negative); PH, Urine 5.5 (5.0-8.0); Protein,Urine Trace (Negative); Specific Gravity,Urine 1.007 (1.001-1.035); Urobilinogen,Urine <2.0 mg/dL (<2.0)
== END | disposition home or self-care (01) ==
LOC: RADUSWWP 08:15
PROVIDERS: ATTEND Internal Medicine
DX: N18.4 Chronic kidney disease, stage 4 (severe) (principal)
CPT/HCPCS: 76770; 80053; 81003; 84100; 85027

== ENCOUNTER → 2020-02-12 | Outpatient (CLI) | payer MEDICARE, BC ==
[2020-02-12 10:49] LABS: African American GFR (CKD) 41.1 (60.0-200.0); Anion Gap 6.1 mmol/L (4.00-12.00); BUN/Creat Ratio 13.16 Ratio (12.00-20.00); Calcium 8.6 mg/dL (8.7-10.3); Carbon Dioxide 23.9 mmol/L (21.6-31.8); Chol/HDL Ratio 3.94; LDL Cholesterol,Calculated 66.8 mg/dL (0.0-131.0); Non-African American GFR(CKD) 35.4 (60.0-200.0); VLDL Calculation 27.2 mg/dL (5.00-40.00)
[2020-02-12 11:45] LABS: Urine Creatinine 134.2 mg/dL
[2020-02-12 18:10] LABS: Hemoglobin A1C 6.2 % (4.0-6.0)
== END | disposition home or self-care (01) ==
LOC: LABWHC1 07:03
PROVIDERS: ATTEND Internal Medicine
DX: E11.65 Type 2 diabetes mellitus with hyperglycemia (principal)
CPT/HCPCS: 36415; 80048; 80061; 82043; 82570; 83036

== ENCOUNTER → 2020-09-11 | Outpatient (CLI) | payer MEDICARE, BC ==
[2020-09-11 14:36] LABS: Appearance,Urine Clear (Clear); Bilirubin,Urine Negative (Negative); Blood,Urine Negative (Negative); Color,Urine Light Yellow; Glucose,Urine (UA) Negative (Negative); Ketones,Urine Negative (Negative); Leukocyte Esterase,Urine Negative (Negative); Nitrite,Urine Negative (Negative); PH, Urine 5.5 (5.0-8.0); Protein,Urine Trace (Negative); Specific Gravity,Urine 1.004 (1.001-1.035); Urobilinogen,Urine <2.0 mg/dL (<2.0)
[2020-09-11 19:23] LABS: Basophils # (A) 0.02 X 10*3/uL (0.00-0.10); Basophils % (A) 0.5 %; Eosinophils # (A) 0.11 X 10*3/uL (0.04-0.35); Eosinophils % (A) 2.6 %; HCT 42.1 % (39.6-50.0); HGB 12.5 g/dL (13.0-17.0); Lymphocytes # (A) 1.37 X 10*3/uL (0.90-5.00); Lymphocytes % (A) 32.4 %; MCH 24.8 pg (27.0-32.0); MCHC 29.7 g/dL (32.0-37.0); MCV 83.4 fL (80.0-97.0); Mean Platelet Volume 10.6 fL (9.5-12.2); Monocytes # (A) 0.37 X 10*3/uL (0.20-1.00); Monocytes % (A) 8.7 %; Neutrophils # (A) 2.35 X 10*3/uL (1.80-7.70); Neutrophils % (A) 55.6 %; Platelet Count 195 X 10*3/uL (140-440); RBC 5.05 X 10*6/uL (4.40-5.60); RDW 14.5 % (11.5-14.5); WBC 4.23 X 10*3/uL (4.50-10.00)
[2020-09-11 20:08] LABS: % Iron Saturation 18.49 (15.00-50.00); African American GFR (CKD) 43.8 (60.0-200.0); Albumin/Globulin Ratio 2.22 (1.60-3.17); Anion Gap 4.2 mmol/L (4.00-12.00); BUN/Creat Ratio 14.44 Ratio (12.00-20.00); Calcium 8.5 mg/dL (8.7-10.3); Carbon Dioxide 23.8 mmol/L (21.6-31.8); Globulin 1.8 g/dL (1.6-3.3); Magnesium 1.9 mg/dL (1.5-2.4); Non-African American GFR(CKD) 37.8 (60.0-200.0); Phosphorus 4.2 mg/dL (2.4-5.1); Potassium 4.8 mmol/L (3.5-5.5); Total Bilirubin 0.3 mg/dL (0.2-1.2); Total Protein 5.8 g/dL (6.2-8.2); Uric Acid 5.8 mg/dL (3.7-8.7)
[2020-09-11 20:17] LABS: Ferritin 102.3 ng/mL (22.0-322.0)
[2020-09-12 01:10] LABS: Urine Creatinine 61.7 mg/dL
== END | disposition home or self-care (01) ==
LOC: LABWHC1 13:09
PROVIDERS: ATTEND Nurse Practitioner Family
DX: N18.32 Chronic kidney disease, stage 3b (principal); D64.9 Anemia, unspecified; N39.0 Urinary tract infection, site not specified; R80.9 Proteinuria, unspecified; E21.3 Hyperparathyroidism, unspecified; E55.9 Vitamin D deficiency, unspecified; M10.9 Gout, unspecified
CPT/HCPCS: 36415; 80053; 81003; 82043; 82306; 82570; 82728; 83036; 83540; 83550; 83735; 83970; 84100; 84550; 85025

== ENCOUNTER → 2020-12-11 | Outpatient (CLI) | payer MEDICARE, BC ==
[2020-12-11 13:51] LABS: Uric Acid 5.7 mg/dL (3.7-8.7)
[2020-12-11 13:59] LABS: Prostate Specific Antigen 1.3 ng/mL (0.0-4.5)
== END | disposition home or self-care (01) ==
LOC: LABWHC1 07:17
PROVIDERS: ATTEND Family Medicine
DX: R97.20 Elevated prostate specific antigen [PSA] (principal); N40.1 Benign prostatic hyperplasia with lower urinary tract symptoms; E79.0 Hyperuricemia without signs of inflammatory arthritis and tophaceous disease
CPT/HCPCS: 36415; 84153; 84550

== ENCOUNTER → 2021-05-14 | Outpatient (CLI) | payer MEDICARE, BC | END | disposition home or self-care (01) | LOC: LABWHC1 07:05 | PROVIDERS: ATTEND Family Medicine | DX: I12.9 Hypertensive chronic kidney disease with stage 1 through stage 4 chronic kidney disease, or unspecified chronic kidney disease (principal); E11.65 Type 2 diabetes mellitus with hyperglycemia | CPT/HCPCS: 36415; 82043; 82570; 83036 ==

== ENCOUNTER → 2021-08-11 | Outpatient (CLI) | payer MEDICARE, BC ==
[2021-08-11 12:13] LABS: African American GFR (CKD) 43.5 (60.0-200.0); Anion Gap 11.6 mmol/L (10.00-18.00); BUN/Creat Ratio 17.72 Ratio (12.00-20.00); Blood Urea Nitrogen 31.9 mg/dL (9.0-27.0); Calcium 8.5 mg/dL (8.7-10.3); Carbon Dioxide 22.4 mmol/L (20.0-27.5); Non-African American GFR(CKD) 37.6 (60.0-200.0); Potassium 4.1 mmol/L (3.5-5.5); Total Bilirubin 0.3 mg/dL (0.30-1.20)
== END | disposition home or self-care (01) ==
LOC: LABWHC1 07:14
PROVIDERS: ATTEND Family Medicine
DX: E11.65 Type 2 diabetes mellitus with hyperglycemia (principal)
CPT/HCPCS: 36415; 80053; 83036

== ENCOUNTER → 2021-10-26 | Outpatient (CLI) | payer MEDICARE, BC ==
[2021-10-26 10:37] LABS: Appearance,Urine Clear (Clear); Bilirubin,Urine Negative (Negative); Blood,Urine Negative (Negative); Color,Urine Yellow (Yellow); Ketones,Urine Negative (Negative); Nitrite,Urine Negative (Negative); Urobilinogen,Urine 0.2 (0.2,1.0)
[2021-10-26 10:42] LABS: Bacteria,Urine None Seen /HPF (None Seen)
[2021-10-26 10:46] LABS: HCT 42.2 % (39.6-50.0); HGB 12.5 g/dL (13.0-17.0); MCH 24.2 pg (27.0-32.0); MCHC 29.6 g/dL (32.0-37.0); MCV 81.8 fL (80.0-97.0); Mean Platelet Volume 10.8 fL (9.5-12.2); NRBC Per 100 WBC 0 /100 WBCS (0.0-0.0); Platelet Count 219 X 10*3/uL (140-440); RBC 5.16 X 10*6/uL (4.40-5.60); RDW 14.5 % (11.5-14.5); WBC 5.52 X 10*3/uL (4.50-10.00)
[2021-10-26 11:07] LABS: African American GFR (CKD) 46.7 (60.0-200.0); Albumin 3.8 g/dL (3.8-4.9); Anion Gap 15.1 mmol/L (10.00-18.00); BUN/Creat Ratio 14.76 Ratio (12.00-20.00); Blood Urea Nitrogen 25.1 mg/dL (9.0-27.0); Calcium 8.4 mg/dL (8.7-10.3); Carbon Dioxide 20.9 mmol/L (20.0-27.5); Ferritin 89.4 ng/mL (22.0-322.0); Globulin 1.9 g/dL (1.6-3.3); Magnesium 2.2 mg/dL (1.5-2.4); Non-African American GFR(CKD) 40.3 (60.0-200.0); Phosphorus 3.2 mg/dL (2.4-5.1); Potassium 4.4 mmol/L (3.5-5.5); Total Bilirubin 0.2 mg/dL (0.30-1.20); Total Protein 5.7 g/dL (6.2-8.2); Uric Acid 4.9 mg/dL (3.7-8.7)
[2021-10-26 11:20] LABS: % Iron Saturation 15.09 (15.00-50.00)
[2021-10-26 11:47] LABS: Urine Creatinine 63.3 mg/dL (39.0-259.0)
== END | disposition home or self-care (01) ==
LOC: LABWHC1 07:21
PROVIDERS: ATTEND Nurse Practitioner Family
DX: N18.32 Chronic kidney disease, stage 3b (principal); D64.9 Anemia, unspecified; N39.0 Urinary tract infection, site not specified; N25.81 Secondary hyperparathyroidism of renal origin; E55.9 Vitamin D deficiency, unspecified; M10.9 Gout, unspecified
CPT/HCPCS: 36415; 80053; 81001; 82043; 82306; 82570; 82728; 83540; 83550; 83735; 83970; 84100; 84550; 85027

== ENCOUNTER → 2021-11-09 | Outpatient (CLI) | payer MEDICARE, BC ==
[2021-11-09 10:27] LABS: Basophils # (A) 0.02 X 10*3/uL (0.00-0.10); Basophils % (A) 0.3 %; Eosinophils # (A) 0.11 X 10*3/uL (0.04-0.35); Eosinophils % (A) 1.9 %; HCT 42.2 % (39.6-50.0); HGB 12.8 g/dL (13.0-17.0); Immature Grans, Automated 0.2 %; Lymphocytes # (A) 1.32 X 10*3/uL (0.90-5.00); Lymphocytes % (A) 23.1 %; MCH 24.2 pg (27.0-32.0); MCHC 30.3 g/dL (32.0-37.0); MCV 79.8 fL (80.0-97.0); Mean Platelet Volume 10.4 fL (9.5-12.2); Monocytes # (A) 0.36 X 10*3/uL (0.20-1.00); Monocytes % (A) 6.3 %; NRBC Per 100 WBC 0 /100 WBCS (0.0-0.0); Neutrophils % (A) 68.2 %; Platelet Count 203 X 10*3/uL (140-440); RBC 5.29 X 10*6/uL (4.40-5.60); RDW 14.6 % (11.5-14.5); WBC 5.72 X 10*3/uL (4.50-10.00)
[2021-11-09 10:41] LABS: ALT 20 U/L (10-49); AST 19 U/L (14-35); Albumin 3.9 g/dL (3.8-4.9); Albumin/Globulin Ratio 2.14 (1.60-3.17); Alkaline Phosphatase 83 U/L (41-126); BUN/Creat Ratio 13.85 Ratio (12.00-20.00); Bilirubin, Conjugated <0.20 mg/dL (0.20-0.40); Blood Urea Nitrogen 23.4 mg/dL (9.0-27.0); Calcium 8.6 mg/dL (8.7-10.3); Carbon Dioxide 24.1 mmol/L (20.0-27.5); Chloride 108 mmol/L (96-109); Chol/HDL Ratio 3.43 Ratio; Globulin 1.8 g/dL (1.6-3.3); Glucose 91 mg/dL (70-110); LDL Cholesterol,Calculated 69.8 mg/dL (0.0-131.0); Non-African American GFR(CKD) 40.5 (60.0-200.0); Potassium 4.2 mmol/L (3.5-5.5); Sodium 143 mmol/L (135-145); Total Protein 5.8 g/dL (6.2-8.2); VLDL Calculation 18.76 mg/dL (5.00-40.00)
== END | disposition home or self-care (01) ==
LOC: LABWHC1 06:57
PROVIDERS: ATTEND Nurse Practitioner Family
DX: N18.32 Chronic kidney disease, stage 3b (principal)
CPT/HCPCS: 36415; 80053; 80061; 80169; 80197; 82248; 83735; 84156; 85025

== ENCOUNTER → 2022-01-28 | Outpatient (CLI) | payer MEDICARE, BC ==
[2022-01-28 11:08] LABS: HGB 11.9 g/dL (13.0-17.0); MCH 24.7 pg (27.0-32.0); MCHC 30.5 g/dL (32.0-37.0); MCV 81.1 fL (80.0-97.0); Mean Platelet Volume 10.5 fL (9.5-12.2); NRBC Per 100 WBC 0 /100 WBCS (0.0-0.0); Platelet Count 193 X 10*3/uL (140-440); RBC 4.81 X 10*6/uL (4.40-5.60); RDW 15.5 % (11.5-14.5); WBC 4.82 X 10*3/uL (4.50-10.00)
[2022-01-28 11:39] LABS: % Iron Saturation 11.56 (15.00-50.00); African American GFR (CKD) 34.2 (60.0-200.0); Albumin/Globulin Ratio 1.67 (1.60-3.17); Anion Gap 10.3 mmol/L (10.00-18.00); BUN/Creat Ratio 13.5 Ratio (12.00-20.00); Blood Urea Nitrogen 29.7 mg/dL (9.0-27.0); Calcium 8.7 mg/dL (8.7-10.3); Carbon Dioxide 22.7 mmol/L (20.0-27.5); Globulin 2.4 g/dL (1.6-3.3); Magnesium 2.3 mg/dL (1.5-2.4); Non-African American GFR(CKD) 29.5 (60.0-200.0); Phosphorus 3.4 mg/dL (2.4-5.1); Potassium 4.5 mmol/L (3.5-5.5); Total Bilirubin 0.3 mg/dL (0.30-1.20); Total Protein 6.4 g/dL (6.2-8.2)
[2022-01-28 11:52] LABS: Appearance,Urine Clear (Clear); Bilirubin,Urine Negative (Negative); Blood,Urine Negative (Negative); Color,Urine Yellow (Yellow); Ketones,Urine Negative (Negative); Nitrite,Urine Negative (Negative); PH, Urine 5.5 (5.0-8.0); Specific Gravity,Urine 1.016 (1.001-1.030); Urobilinogen,Urine 0.2 (0.2,1.0)
== END | disposition home or self-care (01) ==
LOC: LABWHC1 07:09
PROVIDERS: ATTEND Nurse Practitioner Family
DX: N18.32 Chronic kidney disease, stage 3b (principal); D64.9 Anemia, unspecified; E11.65 Type 2 diabetes mellitus with hyperglycemia; N39.0 Urinary tract infection, site not specified; N25.81 Secondary hyperparathyroidism of renal origin; E55.9 Vitamin D deficiency, unspecified; M10.9 Gout, unspecified
CPT/HCPCS: 36415; 80053; 81001; 82043; 82306; 82570; 82728; 83036; 83540; 83550; 83735; 83970; 84100; 84550; 85027

== ENCOUNTER → 2022-04-22 | Outpatient (CLI) | payer MEDICARE, BC ==
[2022-04-22 18:27] LABS: Basophils # (A) 0.02 X 10*3/uL (0.00-0.10); Basophils % (A) 0.4 %; Eosinophils # (A) 0.17 X 10*3/uL (0.04-0.35); Eosinophils % (A) 3.3 %; HCT 41.1 % (39.6-50.0); HGB 12.6 g/dL (13.0-17.0); Immature Grans, Automated 0.2 %; Lymphocytes # (A) 1.33 X 10*3/uL (0.90-5.00); Lymphocytes % (A) 25.9 %; MCHC 30.7 g/dL (32.0-37.0); MCV 81.5 fL (80.0-97.0); Mean Platelet Volume 10.2 fL (9.5-12.2); Monocytes # (A) 0.31 X 10*3/uL (0.20-1.00); NRBC Per 100 WBC 0 /100 WBCS (0.0-0.0); Neutrophils # (A) 3.29 X 10*3/uL (1.80-7.70); Neutrophils % (A) 64.2 %; Platelet Count 203 X 10*3/uL (140-440); RBC 5.04 X 10*6/uL (4.40-5.60); RDW 14.2 % (11.5-14.5); WBC 5.13 X 10*3/uL (4.50-10.00)
[2022-04-22 18:37] LABS: ALT 19 U/L (10-49); AST 18 U/L (14-35); Albumin 4.2 g/dL (3.8-4.9); Albumin/Globulin Ratio 2.07 (1.60-3.17); Alkaline Phosphatase 80 U/L (41-126); BUN/Creat Ratio 15.68 Ratio (12.00-20.00); Bilirubin, Conjugated <0.20 mg/dL (0.20-0.40); Blood Urea Nitrogen 30.1 mg/dL (9.0-27.0); Calcium 8.8 mg/dL (8.7-10.3); Carbon Dioxide 24.2 mmol/L (20.0-27.5); Chloride 110 mmol/L (96-109); Glucose 97 mg/dL (70-110); Magnesium 2.2 mg/dL (1.5-2.4); Non-African American GFR(CKD) 34.5 (60.0-200.0); Phosphorus 3.6 mg/dL (2.4-5.1); Sodium 143 mmol/L (135-145); Total Protein 6.2 g/dL (6.2-8.2); Uric Acid 5.4 mg/dL (3.7-8.7)
[2022-04-22 18:45] LABS: Appearance,Urine Clear (Clear); Bilirubin,Urine Negative (Negative); Blood,Urine Negative (Negative); Color,Urine Yellow (Yellow); Ketones,Urine Negative (Negative); Nitrite,Urine Negative (Negative); Specific Gravity,Urine 1.015 (1.001-1.030); Urobilinogen,Urine 0.2 (0.2,1.0)
[2022-04-22 18:46] LABS: Protein, Total 6.3 g/dL (6.2-8.2)
[2022-04-22 18:53] LABS: % Iron Saturation 15.19 (15.00-50.00); Iron 51 ug/dL (65-175); Total Iron Binding Capacity 333 ug/dL (228-460)
[2022-04-22 20:42] LABS: Total Volume 24 Hour,Urine 3000 mL
[2022-04-22 23:12] LABS: DNA Double-Stranded NEGATIVE (NEGATIVE)
[2022-04-25 10:25] LABS: Albumin 3.74 g/dL (3.80-4.90); Gamma Globulin 0.69 g/dL (0.70-1.50)
[2022-04-25 11:13] LABS: Free Kappa Lt Chain Qnt, Serum 2.61 mg/dL (0.33-1.94); Free Lambda Lt Chain Qnt, Seru 1.45 mg/dL (0.57-2.63)
== END | disposition home or self-care (01) ==
LOC: LABWHC1 09:07
PROVIDERS: ATTEND Nurse Practitioner Family
DX: N25.81 Secondary hyperparathyroidism of renal origin (principal); N18.32 Chronic kidney disease, stage 3b; D63.1 Anemia in chronic kidney disease; N39.0 Urinary tract infection, site not specified; E55.9 Vitamin D deficiency, unspecified; M10.9 Gout, unspecified; E11.22 Type 2 diabetes mellitus with diabetic chronic kidney disease; E11.65 Type 2 diabetes mellitus with hyperglycemia; R80.9 Proteinuria, unspecified
CPT/HCPCS: 36415; 80053; 81001; 81050; 82248; 82306; 82728; 83036; 83516; 83540; 83550; 83735; 83883; 83970; 84100; 84156; 84165; 84550; 85025; 86038; 86160; 86162; 86225; 86255; 86334

== ENCOUNTER → 2022-06-03 | Outpatient (CLI) | payer MEDICARE, BC ==
[2022-06-03 11:09] LABS: Ferritin 96.9 ng/mL (22.0-322.0)
[2022-06-03 11:42] LABS: % Iron Saturation 12.14 (15.00-50.00); African American GFR (CKD) 40.5 (60.0-200.0); Albumin 4.2 g/dL (3.8-4.9); Albumin/Globulin Ratio 1.75 (1.60-3.17); Anion Gap 12.5 mmol/L (10.00-18.00); BUN/Creat Ratio 13.84 Ratio (12.00-20.00); Blood Urea Nitrogen 26.3 mg/dL (9.0-27.0); Calcium 8.7 mg/dL (8.7-10.3); Carbon Dioxide 23.5 mmol/L (20.0-27.5); Globulin 2.4 g/dL (1.6-3.3); Magnesium 2.2 mg/dL (1.5-2.4); Non-African American GFR(CKD) 34.9 (60.0-200.0); Phosphorus 4.1 mg/dL (2.4-5.1); Potassium 4.6 mmol/L (3.5-5.5); Total Bilirubin 0.3 mg/dL (0.30-1.20); Total Protein 6.6 g/dL (6.2-8.2); Uric Acid 5.8 mg/dL (3.7-8.7)
[2022-06-03 13:11] LABS: DNA Double-Stranded NEGATIVE (NEGATIVE)
[2022-06-03 14:05] LABS: Free Kappa Lt Chain Qnt, Serum 2.66 mg/dL (0.33-1.94); Free Lambda Lt Chain Qnt, Seru 1.53 mg/dL (0.57-2.63)
[2022-06-03 17:36] LABS: Appearance,Urine Clear (Clear); Bilirubin,Urine Negative (Negative); Blood,Urine Negative (Negative); Color,Urine Yellow (Yellow); Ketones,Urine Negative (Negative); Nitrite,Urine Negative (Negative); PH, Urine 5.5 (5.0-8.0); Specific Gravity,Urine 1.014 (1.001-1.030); Urobilinogen,Urine 0.2 (0.2,1.0)
== END | disposition home or self-care (01) ==
LOC: LABWHC1 06:59
PROVIDERS: ATTEND Nurse Practitioner Family
DX: N25.81 Secondary hyperparathyroidism of renal origin (principal); N39.0 Urinary tract infection, site not specified; N18.32 Chronic kidney disease, stage 3b; E55.9 Vitamin D deficiency, unspecified; M10.9 Gout, unspecified; D63.1 Anemia in chronic kidney disease; R80.9 Proteinuria, unspecified
CPT/HCPCS: 36415; 80053; 81001; 82043; 82306; 82570; 82728; 83516; 83540; 83550; 83735; 83883; 83970; 84100; 84550; 86038; 86160; 86162; 86225; 86255; 86334

== ENCOUNTER → 2022-06-20 | Outpatient (CLI) | payer MEDICARE, BC ==
--- NOTE | 2022-06-20 13:46 | US ---
EXAMINATION TYPE: US kidneys/renal and bladder DATE OF EXAM: 06/20/2022 COMPARISON: 01/15/2020 CLINICAL HISTORY: N18.32 STAGE 3 CKD. Abnormal labs. EXAM MEASUREMENTS: Right Kidney: 11.4 x 4.2 x 5.5 cm Left Kidney: 11.4 x 4.1 x 4.7 cm Right Kidney: No hydronephrosis or masses seen Left Kidney: No hydronephrosis or masses seen Bladder: anechoic, distended Bilateral Jets not seen There is no hydronephrosis. No nephrolithiasis is seen. No masses are identified. The urinary blad gavin is anechoic. IMPRESSION: Unremarkable renal ultrasound. No hydronephrosis, nephrolithiasis, or renal masses.
== END | disposition home or self-care (01) ==
LOC: RADUSWWP 12:51
PROVIDERS: ATTEND Internal Medicine Nephrology
DX: N18.32 Chronic kidney disease, stage 3b (principal)
CPT/HCPCS: 76770

== ENCOUNTER → 2022-08-19 | Outpatient (CLI) | payer MEDICARE, BC ==
[2022-08-19 10:53] LABS: ALT 15 U/L (10-49); AST 17 U/L (14-35); African American GFR (CKD) 41.3 (60.0-200.0); Albumin/Globulin Ratio 2.19 (1.60-3.17); Alkaline Phosphatase 63 U/L (41-126); BUN/Creat Ratio 12.57 Ratio (12.00-20.00); Blood Urea Nitrogen 23.5 mg/dL (9.0-27.0); Calcium 8.6 mg/dL (8.7-10.3); Carbon Dioxide 23.6 mmol/L (20.0-27.5); Chloride 111 mmol/L (96-109); Chol/HDL Ratio 3.52 Ratio; Globulin 1.8 g/dL (1.6-3.3); Glucose 87 mg/dL (70-110); LDL Cholesterol,Calculated 54.8 mg/dL (0.0-131.0); Non-African American GFR(CKD) 35.6 (60.0-200.0); Potassium 4.7 mmol/L (3.5-5.5); Sodium 144 mmol/L (135-145); Total Protein 5.8 g/dL (6.2-8.2)
== END | disposition home or self-care (01) ==
LOC: LABWHC1 07:35
PROVIDERS: ATTEND Family Medicine
DX: E11.65 Type 2 diabetes mellitus with hyperglycemia (principal)
CPT/HCPCS: 36415; 80053; 80061; 82043; 82570; 83036

== ENCOUNTER 2022-10-29 09:10 | Emergency (ER) | payer MEDICARE, BC ==
[2022-10-29] MEDS ORDERED: DIPH,PERTUS(ACELL)TETVAC-LF 0.5 ML VIAL IM ONE (09:30)
--- NOTE | 2022-10-29 09:36 | ED ---
General Adult HPI - General Chief complaint: Wound/Laceration Stated complaint: L arm injury Time Seen by Provider: 10/29/22 09:12 Source: patient, RN notes reviewed, old records reviewed Mode of arrival: ambulatory Limitations: no limitations - History of Present Illness Initial comments: 72-year-old male presenting for evaluation of skin tear to the left forearm. Patient has been putting new siding on his home. He had injured the left forearm. This occurred yesterday evening. He had cleansed the wound and applied Vaseline. Tetanus is not up-to-date. - Related Data Home Medications Medication Instructions Recorded Confirmed Cholecalciferol [Vitamin D3 (25 2,000 unit PO BID 01/26/16 07/31/17 Mcg = 1000 Iu)] Tamsulosin [Flomax] 0.4 mg PO DAILY 03/28/16 07/31/17 Aspirin EC [Ecotrin Low Dose] 81 mg PO DAILY 11/21/16 07/31/17 Magnesium Oxide [Mag-Ox] 400 mg PO DAILY 11/21/16 07/31/17 Tacrolimus [Prograf] 1 mg PO HS 11/21/16 07/31/17 Tacrolimus [Prograf] 2 mg PO QAM 11/21/16 07/31/17 Vitamin B Complex 1 cap PO DAILY 11/21/16 07/31/17 traZODone HCL 50 mg PO HS 11/21/16 07/31/17 ursodioL [Actigall] 300 mg PO BID 11/21/16 07/31/17 Everolimus 3 tab PO BID 07/28/17 07/31/17 Ferrous Sulfate (Unknown Dose) 1 tab PO BID 07/28/17 07/31/17 Insulin Glargine,Hum.rec.anlog 24 unit SQ HS 07/28/17 07/31/17 [Lantus Solostar] Janumet (Unknown Dose) 1 tab PO DAILY 07/28/17 07/31/17 allopurinoL [Zyloprim] 100 mg PO DAILY 07/28/17 07/31/17 glipiZIDE [Glucotrol] 5 mg PO AC-BID 07/28/17 07/31/17 Allergies Allergy/AdvReac Type Severity Reaction Status Date / Time No Known Allergies Allergy Verified 10/29/22 09:16 Review of Systems ROS Statement: Those systems with pertinent positive or pertinent negative responses have been documented in the HPI. ROS Other: All systems not noted in ROS Statement are negative. Past Medical History Past Medical History: Cancer, Diabetes Mellitus, Hyperlipidemia, Hypertension, Liver Disease, Renal Disease Additional Past Medical History / Comment(s): Liver Transplant 05/24/16 at [facility], (PREVIOUS end stage liver disease, liver cirrhosis with recurrent ascites& paracentesis weekly, episodic hyperkalemia, coagulopathy), chronic renal failure, diabetes mellitus type II, colon polyps, sinus infections, seasonal allergies, Hx of HYPERBARIC CHAMBER FOR ANTIBIOTIC INHALATION FOR LIVER TRANSPLANT AT [facility]. , melanoma left chest- pt states small scab from biopsy. History of Any Multi-Drug Resistant Organisms: None Reported Past Surgical History: Appendectomy, Tonsillectomy Additional Past Surgical History / Comment(s): colonoscopy with precancerous polyps removed, skin precancerous lesions removed, multiple PARACENTESIS, liver transplant 05/24/16 at [facility]. Past Anesthesia/Blood Transfusion Reactions: No Reported Reaction Past Psychological History: No Psychological Hx Reported Smoking Status: Never smoker Past Alcohol Use History: None Reported Past Drug Use History: None Reported - Past Family History Mother Family Medical History: No Reported History Additional Family Medical History / Comment(s): Mother was healthy and at the age of 98yrs. Father Family Medical History: Cancer, Deep Vein Thrombosis (DVT) Additional Family Medical History / Comment(s): Skin cancer. Father had another type of cancer-unknown what kind. He at the age of 73yrs. General Exam Limitations: no limitations General appearance: alert, in no apparent distress Head exam: Present: atraumatic, normocephalic Eye exam: Present: normal appearance, PERRL ENT exam: Present: normal exam Neck exam: Present: normal inspection. Absent: tenderness Cardiovascular Exam: Present: regular rate, normal rhythm GI/Abdominal exam: Present: soft. Absent: distended, tenderness Extremities exam: Present: other (Superficial skin tear to the left dorsal forearm. No active bleeding.) Course Vital Signs 10/29/22 09:14 Temperature 97.9 F Pulse Rate 66 Respiratory 20 Rate Blood Pressure 150/88 O2 Sat by Pulse 99 Oximetry Medical Decision Making - Medical Decision Making Was pt. sent in by a medical professional or institution (, PA, BODY MECHANIC, urgent care, hospital, or group home...) When possible be specific @ -No Did you speak to anyone other than the patient for history (EMS, parent, family, police, friend...)? What history was obtained from this source @ -No Did you review nursing and triage notes (agree or disagree)? Why? @ -I reviewed and agree with nursing and triage notes Were old charts reviewed (outside hosp., previous admission, EMS record, old EKG, old radiological studies, urgent care reports/EKG's, group home records)? Report findings @ -No old charts were reviewed Differential Diagnosis (chest pain, altered mental status, abdominal pain women, abdominal pain men, vaginal bleeding, weakness, fever, dyspnea, syncope, headache, dizziness, GI bleed, back pain, seizure, CVA, palpatations, mental health, musculoskeletal)? @ -Abrasion, skin tear, laceration EKG interpreted by me (3pts min.). @ -As above X-rays interpreted by me (1pt min.). @ -None done CT interpreted by me (1pt min.). @ -None done U/S interpreted by me (1pt. min.). @ -None done What testing was considered but not performed or refused? (CT, X-rays, U/S, labs)? Why? @ -None What meds were considered but not given or refused? Why? @ -None Did you discuss the management of the patient with other professionals (professionals i.e. , PA, BODY MECHANIC, lab, RT, psych nurse, social service worker, wire spiral binder, teacher, toxics program officer, supportive employment case manager)? Give summary @ -No Was smoking cessation discussed for >3mins.? @ -No Was critical care preformed (if so, how long)? @ -No Were there social determinants of health that impacted care today? How? (Homelessness, low income, unemployed, alcoholism, drug addiction, transportation, low edu. Level, literacy, decrease access to med. care, shelter, rehab)? @ -No Was there de-escalation of care discussed even if they declined (Discuss DNR or withdrawal of care, Hospice)? DNR status @ -No What co-morbidities impacted this encounter? (DM, HTN, Smoking, COPD, CAD, Cancer, CVA, ARF, Chemo, Hep., AIDS, mental health diagnosis, sleep apnea, morbid obesity)? @ -[Status post liver transplant Was patient admitted / discharged? Hospital course, mention meds given and route, prescriptions, significant lab abnormalities, going to OR and other pertinent info. @ -[The area is irrigated, cleansed, and repaired with Steri-Strips, nonadherent dressing is applied. Patient will continue local wound care. Undiagnosed new problem with uncertain prognosis? @ -No Drug Therapy requiring intensive monitoring for toxicity (Heparin, Nitro, Insulin, Cardizem)? @ -No Were any procedures done? @ -No Diagnosis/symptom? @ -Skin tear Acute, or Chronic, or Acute on Chronic? @ -Acute Uncomplicated (without systemic symptoms) or Complicated (systemic symptoms)? @ -default Side effects of treatment? @ -No Exacerbation, Progression, or Severe Exacerbation? @ -No Poses a threat to life or bodily function? How? (Chest pain, [place], [place], pneumonia, PE, COPD, DKA, ARF, appy, cholecystitis, CVA, Diverticulitis, Homicidal, Suicidal, threat to staff... and all critical care pts) @ -No Disposition Clinical Impression: Skin tear Disposition: HOME SELF-CARE Condition: Good Instructions (If sedation given, give patient instructions): Skin Tear (ED) Is patient prescribed a controlled substance at d/c from ED?: No Referrals: Samuel Hurst MD [Primary Care Provider] - 1-2 days Time of Disposition: 09:36
[2022-10-29 09:50] VITALS: BP 140/78; PULSE 67; RESP 18; TEMP 98
== END 2022-10-29 09:58 | disposition home or self-care (01) ==
LOC: EC 09:10
DX: S46.912A Strain of unspecified muscle, fascia and tendon at shoulder and upper arm level, left arm, initial encounter (principal); I12.9 Hypertensive chronic kidney disease with stage 1 through stage 4 chronic kidney disease, or unspecified chronic kidney disease; E11.22 Type 2 diabetes mellitus with diabetic chronic kidney disease; E78.5 Hyperlipidemia, unspecified; N18.9 Chronic kidney disease, unspecified; Z79.82 Long term (current) use of aspirin; Z79.84 Long term (current) use of oral hypoglycemic drugs; Z79.899 Other long term (current) drug therapy; Z23 Encounter for immunization; X58.XXXA Exposure to other specified factors, initial encounter; Y92.009 Unspecified place in unspecified non-institutional (private) residence as the place of occurrence of the external cause
CPT/HCPCS: 90471; 90715; 99283

== ENCOUNTER → 2023-05-13 | Outpatient (CLI) | payer MEDICARE, BC ==
[2023-05-13 13:51] LABS: LDL Cholesterol,Calculated 68.2 mg/dL (0.0-131.0); VLDL Calculation 17.06 mg/dL (5.00-40.00)
[2023-05-13 14:06] LABS: Basophils # (A) 0.01 X 10*3/uL (0.00-0.10); Basophils % (A) 0.2 %; Eosinophils # (A) 0.12 X 10*3/uL (0.04-0.35); Eosinophils % (A) 2.2 %; HGB 13.2 g/dL (13.0-17.0); Lymphocytes # (A) 1.35 X 10*3/uL (0.90-5.00); Lymphocytes % (A) 24.8 %; MCH 25.3 pg (27.0-32.0); MCHC 31.4 g/dL (32.0-37.0); MCV 80.5 FL (80.0-97.0); Mean Platelet Volume 10.4 FL (9.5-12.2); Monocytes # (A) 0.38 X 10*3/uL (0.20-1.00); NRBC Per 100 WBC 0 X 10*3/uL (0.00-0.01); Neutrophils # (A) 3.55 X 10*3/uL (1.80-7.70); Neutrophils % (A) 65.1 %; Platelet Count 189 X 10*3/uL (140-440); RBC 5.22 X 10*6/uL (4.40-5.60); RDW 14.9 % (11.5-14.5); WBC 5.45 X 10*3/uL (4.50-10.00)
[2023-05-13 14:09] LABS: Magnesium 1.9 mg/dL (1.5-2.4)
[2023-05-14 16:25] LABS: ALT 18 U/L (10-49); AST 20 U/L (14-35); Albumin/Globulin Ratio 1.82 Ratio (1.60-3.17); Alkaline Phosphatase 73 U/L (41-126); BUN/Creat Ratio 14.67 Ratio (12.00-20.00); Bilirubin, Conjugated <0.20 mg/dL (0.20-0.40); Bilirubin,Unconjugated >0.10 mg/dL (0.20-1.00); Blood Urea Nitrogen 26.4 mg/dL (9.0-27.0); Calcium 8.8 mg/dL (8.7-10.3); Carbon Dioxide 23.8 mmol/L (21.6-31.8); Chloride 109 mmol/L (96-109); Globulin 2.2 g/dL (1.6-3.3); Glucose 79 mg/dL (70-110); Potassium 4.7 mmol/L (3.5-5.5); Sodium 144 mmol/L (135-145); Total Bilirubin 0.3 mg/dL (0.3-1.2); Total Protein 6.2 g/dL (6.2-8.2)
== END | disposition home or self-care (01) ==
LOC: LABWHC1 08:28
PROVIDERS: ATTEND Family Medicine
DX: Z51.81 Encounter for therapeutic drug level monitoring (principal); Z94.4 Liver transplant status; Z48.298 Encounter for aftercare following other organ transplant; E11.65 Type 2 diabetes mellitus with hyperglycemia; D84.9 Immunodeficiency, unspecified; E11.22 Type 2 diabetes mellitus with diabetic chronic kidney disease; N18.32 Chronic kidney disease, stage 3b; Z79.899 Other long term (current) drug therapy
CPT/HCPCS: 36415; 80053; 80061; 80197; 82043; 82248; 82570; 83036; 83735; 85025

== ENCOUNTER → 2023-06-13 | Outpatient (CLI) | payer MEDICARE, BC ==
[2023-06-13 18:38] LABS: Basophils # (A) 0.02 X 10*3/uL (0.00-0.10); Basophils % (A) 0.4 %; Eosinophils # (A) 0.13 X 10*3/uL (0.04-0.35); Eosinophils % (A) 2.4 %; HCT 42.6 % (39.6-50.0); HGB 13.2 g/dL (13.0-17.0); Lymphocytes # (A) 1.65 X 10*3/uL (0.90-5.00); Lymphocytes % (A) 30.7 %; MCV 80.5 FL (80.0-97.0); Mean Platelet Volume 11.2 FL (9.5-12.2); Monocytes # (A) 0.43 X 10*3/uL (0.20-1.00); NRBC Per 100 WBC 0 X 10*3/uL (0.00-0.01); Neutrophils # (A) 3.13 X 10*3/uL (1.80-7.70); Neutrophils % (A) 58.3 %; Platelet Count 204 X 10*3/uL (140-440); RBC 5.29 X 10*6/uL (4.40-5.60); RDW 14.4 % (11.5-14.5); WBC 5.37 X 10*3/uL (4.50-10.00)
[2023-06-13 18:40] LABS: Appearance,Urine Clear (Clear); Bilirubin,Urine Negative (Negative); Blood,Urine Negative (Negative); Color,Urine Yellow (Yellow); Ketones,Urine Negative (Negative); Nitrite,Urine Negative (Negative); Specific Gravity,Urine 1.012 (1.001-1.030); Urobilinogen,Urine 0.2 E.U./DL
[2023-06-13 18:49] LABS: Bacteria,Urine None Seen (None Seen)
[2023-06-13 18:54] LABS: Urine Creatinine 81.2 mg/dL (39.0-259.0)
[2023-06-13 19:07] LABS: % Iron Saturation 25.09 (15.00-50.00); ALT 16 U/L (10-49); AST 17 U/L (14-35); Albumin/Globulin Ratio 1.74 Ratio (1.60-3.17); Alkaline Phosphatase 76 U/L (41-126); BUN/Creat Ratio 12.76 Ratio (12.00-20.00); Blood Urea Nitrogen 21.7 mg/dL (9.0-27.0); Calcium 8.9 mg/dL (8.7-10.3); Carbon Dioxide 23.1 mmol/L (21.6-31.8); Chloride 105 mmol/L (96-109); Globulin 2.3 g/dL (1.6-3.3); Glucose 107 mg/dL (70-110); Iron 72 UG/DL (65-175); Phosphorus 3.8 mg/dL (2.4-5.1); Potassium 4.7 mmol/L (3.5-5.5); Sodium 138 mmol/L (135-145); Total Bilirubin 0.4 mg/dL (0.3-1.2); Total Iron Binding Capacity 287 UG/DL (228-460); Total Protein 6.3 g/dL (6.2-8.2)
== END | disposition home or self-care (01) ==
LOC: LABWHC1 12:31
PROVIDERS: ATTEND Internal Medicine Nephrology
DX: N39.0 Urinary tract infection, site not specified (principal); E55.9 Vitamin D deficiency, unspecified; D63.1 Anemia in chronic kidney disease; N18.32 Chronic kidney disease, stage 3b; M10.9 Gout, unspecified; R80.9 Proteinuria, unspecified
CPT/HCPCS: 36415; 80053; 81001; 82043; 82306; 82570; 82728; 83540; 83550; 83970; 84100; 84550; 85025